=== PATIENT | female | born 1955 | race Caucasian/White ===

== ENCOUNTER 2016-11-03 20:16 | Emergency (ER) | payer BC ==
[2016-11-03 21:06] VITALS: BP 155/82
--- NOTE | 2016-11-03 21:28 | RAD ---
HISTORY: Head injury after fall COMPARISONS: April 06, 2003 TECHNIQUE: Multiple contiguous axial CT scans were obtained of the head without intravenous contrast. FINDINGS: HEMORRHAGE/INFARCT: There is no hemorrhage or acute infarct. MASSES/SHIFT: There is no mass or shift. EXTRA-AXIAL SPACES: There are no extra-axial fluid collections. SULCI AND VENTRICLES: The sulci and ventricles are normal in size and position for the patient's stated age. CEREBRUM: There are no focal parenchymal abnormalities. BRAINSTEM: There are no focal parenchymal abnormalities. CEREBELLUM: There are no focal parenchymal abnormalities. VESSELS: The vessels are grossly normal. PARANASAL SINUSES: The paranasal sinuses are clear. ORBITS: The orbits are unremarkable. BONES AND SOFT TISSUE: There is a frontal scalp hematoma. OTHER: None IMPRESSION: NO ACUTE INTRACRANIAL PATHOLOGY.
--- NOTE | 2016-11-03 21:30 | RAD ---
HISTORY: Neck pain after fall COMPARISONS: None TECHNIQUE: Multiple contiguous axial CT scans were obtained of the cervical spine without intravenous contrast, with coronal and sagittal multiplanar reformations. FINDINGS: BRAIN: The visualized brain is unremarkable CENTRAL CANAL: Evaluation of the central canal is limited on CT technique; however, there is no obvious canalicular mass or epidural hemorrhage. ALIGNMENT: The alignment is normal, without subluxation or dislocation. VERTEBRAL BODIES: There is multilevel anterolateral marginal osteophyte formation. There is no displaced fracture. JOINTS: There is osteoarthritis of the atlantoaxial articulation. MUSCULATURE: Unremarkable INTERVERTEBRAL DISCS: There is diffuse loss of intervertebral disc height. AXIAL IMAGES: C2-C3: There is no osseous neural foraminal narrowing or central canal stenosis. C3-C4: There is no osseous neural foraminal narrowing or central canal stenosis. C4-C5: There is no osseous neural foraminal narrowing or central canal stenosis. C5-C6: There is no osseous neural foraminal narrowing or central canal stenosis. C6-C7: There is no osseous neural foraminal narrowing or central canal stenosis. C7-T1: There is no osseous neural foraminal narrowing or central canal stenosis. SOFT TISSUES: The prevertebral fat stripe is preserved. The thyroid gland is heterogeneous with multiple nodules. There is carotid calcification OTHER: None. IMPRESSION: 1. DEGENERATIVE DISC DISEASE AND OSTEOARTHRITIS. 2. NO ACUTE OSSEOUS INJURY TO THE CERVICAL SPINE. 3. MULTINODULAR GOITER. RECOMMEND CORRELATION WITH DEDICATED IMAGING OF THE THYROID IN THE NONACUTE SETTING
--- NOTE | 2016-11-03 21:44 | UC ---
Head Injury HPI - HPI Summary HPI Summary: The patient comes in today for: 1. Fall with head injury and neck pain: Onset: 6 PM Palliative/provocative: Tipping the head back makes her head worse. Quality: Ache Region: Forehead and back of neck. Severity: 3/10 Time: Constant. Associated symptoms: Nausea: Present, but not just since the fall. Photophobia: None Phonophobia: NOne. Disorientation: None. Numbness/tingling: None. Weakness/heaviness: None. Tetanus: in the last year. * - History Of Current Complaint Stated Complaint: HEAD LACERATION Time Seen by Provider: 11/03/16 20:42 Hx Obtained From: Patient, Family/Professional Model - Allergies/Home Medications Allergies/Adverse Reactions: Allergies Allergy/AdvReac Type Severity Reaction Status Date / Time Amoxicillin [From Augmentin] Allergy Intermediate VOMITING, Verified 06/16/15 10 :40 DIARRHEA Clavulanic Acid Allergy Intermediate VOMITING, Verified 06/16/15 10:40 [From Augmentin] DIARRHEA Home Medications: Home Medications Carvedilol TAB* [Coreg TAB*] 1 tab PO BID 11/03/16 [History Confirmed 11/03/16] Lisinopril [Zestril 20 MG-] 1 tab PO DAILY 11/03/16 [History Confirmed 11/03/16] Spironolactone TAB* [Aldactone TAB 25 MG*] 1 tab PO DAILY 11/03/16 [History Confirmed 11/03/16] PMH/Surg Hx/FS Hx/Imm Hx Previously Healthy: Yes Endocrine History Of: Reports: Diabetes Denies: Thyroid Disease Cardiovascular History Of: Reports: Cardiac Disorders - pericardial effusion- pericardial window placed 2005, and LBBB, Hypertension Denies: Pacemaker/ICD, Myocardial Infarction, Congestive Heart Failure, Atrial Fibrillation, Deep Vein Thrombosis, Bleeding Disorders Respiratory History Of: Denies: COPD, Asthma, Bronchitis, Pneumonia, Pulmonary Embolism GI/ History Of: Denies: Gastroesophageal Reflux, Ulcer, Gastrointestinal Bleed, Gall Bladder Disease, Kidney Stones, Diverticulitis, Renal Disease, Urosepsis Neurological History Of: Denies: TIA, CVA, Dementia, Seizures, Migraine Psychological History Of: Denies: Anxiety, Depression, Bipolar Disorder, Schizophrenia, Post Traumatic Stress Disorder Cancer History Of: Denies: Lung Cancer, Colorectal Cancer, Breast Cancer, Prostate Cancer, Cervical Cancer Other History Of: Anticoagulant Therapy - Aspirin Negative For: HIV, Hepatitis B, Hepatitis C - Surgical History Surgical History: Yes Surgery Procedure, Year, and Place: PERICARDIAL WINDOW. TUBAL LIGATION. 2 C- SECTIONS, MAXILLARY SINUS - Family History Known Family History: Positive: Hypertension, Diabetes - Social History Alcohol Use: None Substance Use Type: None Smoking Status (MU): Former Smoker Amount Used/How Often: 1 ppd Length of Time of Smoking/Using Tobacco: 10 years Have You Smoked in the Last Year: No When Did the Patient Quit Smoking/Using Tobacco: 20 years - Immunization History Most Recent Influenza Vaccination: 2012 Review of Systems Constitutional: Negative Skin: Negative Eyes: Negative ENT: Negative Respiratory: Negative Cardiovascular: Negative Gastrointestinal: Negative Genitourinary: Negative All Other Systems Reviewed And Are Negative: Yes Physical Exam Triage Information Reviewed: Yes Appearance: Well-Appearing, No Pain Distress, Well-Nourished Vital Signs: Initial Vital Signs Pulse 81 11/03/16 20:59 Resp 18 11/03/16 20:59 BP 155/82 11/03/16 20:59 Pulse Ox 100 11/03/16 20:59 Vital Signs Reviewed: Yes Eyes: Positive: Conjunctiva Clear. Negative: Discharge ENT: Positive: Hearing grossly normal. Negative: Pharyngeal erythema, Nasal congestion, Nasal drainage, TM bulging, TM dull, TM red, Tonsillar swelling, Tonsillar exudate Dental: Negative: Gross Decay/Caries @, Dental Fracture @ Neck: Positive: Supple, No Lymphadenopathy. Negative: Nontender - She has tenderness of the paraspinous cervical musculature., Nuchal Rigidity Respiratory: Positive: Chest non-tender, Lungs clear, No respiratory distress, No accessory muscle use. Negative: Crackles, Wheezing Cardiovascular: Positive: RRR, No Murmur Abdomen Description: Positive: Nontender, No Organomegaly, Soft. Negative: Distended, Guarding Musculoskeletal: Positive: Strength Intact, ROM Intact, No Edema Neurological: Positive: Alert, Muscle Tone Normal Psychological: Positive: Normal Response To Family, Age Appropriate Behavior, Consolable Skin: Positive: Other - She has a laceration of the forehead. There is ecchymosis and bleeding from the laceration. The swelling of the forehead and around the left eye. Procedures - Laceration/Wound Repair 1 Location: head - Length: 4 cm Depth: 4 mm Width: 3 mm Description: Linear Anesthesia: 2.0%, Epi Betadine Prep?: Yes Laceration/Wound Explored: clean Closure: Single Layer Debridement: minimal Suture Type: Nylon - Ten 5-0 nylon Layer Closure?: No Diagnostics - Radiology No standard instances Xray Interpretation: No Acute Changes - No CT head or CT neck abnormality. Head Injury Course/Dx - Differential Dx/Diagnosis Provider Diagnoses: Head injury. Laceration of the forehead. Discharge - Discharge Plan Condition: Stable Disposition: HOME Patient Education Materials: Head Injury (ED), Laceration (ED), Care For Your Stitches (ED) Referrals: Mona Spicer MD [Primary Care Provider] - 1 Week (Please see your primary care provider or us in about 7 days to have the sutures removed. )
[2016-11-03] MEDS ORDERED: Lidocaine 2% PF * 5 ML VIAL INJ ONE (21:45)
[2016-11-03] MEDS ORDERED: Lidocaine 2% W/EPI 1:100,000* 20 ML MDV ONE (22:01)
[2016-11-03] MEDS ORDERED: Lidocaine 2% EPI 1:200000 MPF* 10 ML VIAL INJ ONE (22:02)
== END 2016-11-03 23:40 | disposition home or self-care (01) ==
LOC: UCEAST 20:16
DX: S01.81XA Laceration without foreign body of other part of head, initial encounter (principal); S09.90XA Unspecified injury of head, initial encounter; W19.XXXA Unspecified fall, initial encounter; Y93.9 Activity, unspecified; Y92.9 Unspecified place or not applicable; Z88.1 Allergy status to other antibiotic agents; E11.9 Type 2 diabetes mellitus without complications; I10 Essential (primary) hypertension; I44.7 Left bundle-branch block, unspecified; Z87.891 Personal history of nicotine dependence
CPT/HCPCS: 12013; 70450; 72125; 93005; 99211; G0463

== ENCOUNTER 2017-06-25 09:19 | Emergency (ER) | payer BC ==
[2017-06-25 09:35] VITALS: BP 125/50
--- NOTE | 2017-06-25 09:36 | UC ---
Cardiac HPI - HPI Summary HPI Summary: 61 yo female with the onset yesterday of generalized chest pressure feels dyspneic especially when supine no n/v no abd pain no diaphoresis hx HTN pace maker DM dyslipidemia pericardial effusion pericardial window cardiomyopathy - History of Current Complaint Stated Complaint: CHEST CONGESTION Time Seen by Provider: 06/25/17 09:22 Hx Obtained From: Patient Onset/Duration: Gradual Onset, Lasting Hours Timing: Constant Initial Severity: Moderate Current Severity: Moderate Chest Pain Location: Diffuse Character: Pressure/Squeezing Aggravating Factor(s): Position Alleviating Factor(s): Position Associated Signs & Symptoms: Positive: Chest Pain, SOB - Allergy/Home Medications Allergies/Adverse Reactions: Allergies Allergy/AdvReac Type Severity Reaction Status Date / Time Amoxicillin [From Augmentin] Allergy Intermediate VOMITING, Verified 06/25/17 09 :35 DIARRHEA Clavulanic Acid Allergy Intermediate VOMITING, Verified 06/25/17 09:35 [From Augmentin] DIARRHEA Lisinopril Allergy Diarrhea Verified 06/25/17 09:35 Pregabalin [From Lyrica] Allergy Swelling Verified 06/25/17 09:35 Home Medications: Home Medications Lactobacillus [Probiotic] 1 cap PO DAILY 06/25/17 [History Confirmed 06/25/17] PMH/Surg Hx/FS Hx/Imm Hx Endocrine History: Diabetes, Dyslipidemia Cardiovascular History: Hypertension, Pacemaker/ICD, Other Other Cardiovascular History: pericarial effusion/cardiomyopathy Respiratory History: Pneumonia Other History Of: Anticoagulant Therapy - Aspirin Negative For: HIV, Hepatitis B, Hepatitis C - Surgical History Surgical History: Yes Surgery Procedure, Year, and Place: PERICARDIAL WINDOW. TUBAL LIGATION. 2 C- SECTIONS, MAXILLARY SINUS - Family History Known Family History: Positive: Cardiac Disease, Hypertension, Diabetes - Social History Alcohol Use: None Substance Use Type: None Smoking Status (MU): Former Smoker Amount Used/How Often: 1 ppd Length of Time of Smoking/Using Tobacco: 10 years Have You Smoked in the Last Year: No When Did the Patient Quit Smoking/Using Tobacco: 20 years - Immunization History Most Recent Influenza Vaccination: 2012 Review of Systems Constitutional: Fatigue Skin: Negative Eyes: Negative ENT: Negative Respiratory: Shortness Of Breath, Cough Cardiovascular: Chest Pain Gastrointestinal: Negative Genitourinary: Negative Motor: Negative Neurovascular: Negative Musculoskeletal: Negative Neurological: Negative Psychological: Negative Is Patient Immunocompromised?: No All Other Systems Reviewed And Are Negative: Yes Physical Exam Triage Information Reviewed: Yes Appearance: Well-Appearing, No Pain Distress, Well-Nourished, Other: - BMI 39 Vital Signs Reviewed: Yes Eyes: Positive: Conjunctiva Clear ENT: Positive: Hearing grossly normal. Negative: Nasal congestion, Nasal drainage, Trismus, Muffled voice, Hoarse voice Neck: Positive: Supple, Nontender Respiratory: Positive: No respiratory distress, No accessory muscle use, Crackles - right base Cardiovascular: Positive: RRR, No Murmur Abdomen Description: Positive: Nontender, No Organomegaly Musculoskeletal: Positive: ROM Intact, No Edema Neurological: Positive: Alert Psychological Exam: Normal Skin Exam: Normal - Assessment/Plan Course Of Treatment: EKG- paced rhythm with PVC. d/w Dr. Peña. to [facility] via EMS. currently no chest pressure seated - Clinical Impression Provider Diagnoses: Chest pressure. dyspnea Discharge - Discharge Plan Condition: Stable Disposition: [facility] Referrals: Mona Spicer MD [Primary Care Provider] -
[2017-06-25] MEDS ORDERED: Aspirin Low Dose CHEW TAB* 81 MG PO ONE (09:51)
== END 2017-06-25 10:06 | disposition short-term general hospital (02) ==
LOC: UCEAST 09:19
DX: R07.89 Other chest pain (principal); R06.00 Dyspnea, unspecified; I10 Essential (primary) hypertension; E11.9 Type 2 diabetes mellitus without complications; R06.02 Shortness of breath; Z95.0 Presence of cardiac pacemaker; Z88.0 Allergy status to penicillin; Z88.1 Allergy status to other antibiotic agents; Z88.8 Allergy status to other drugs, medicaments and biological substances; Z87.891 Personal history of nicotine dependence
CPT/HCPCS: 93005; 99213; A9270-GY; G0463

== ENCOUNTER 2017-06-25 10:28 | Emergency (ER) | payer BC ==
[2017-06-25] MEDS ORDERED: NS 0.9% 1000 ML* 1,000 ML IV ONE ×2 (11:16→12:20)
[2017-06-25] MEDS ORDERED: Nitroglycerin TAB 0.4 MG* 0.4 MG TAB SL ONE (11:16)
[2017-06-25 12:01] LABS: Comments Flag Yes; Hematocrit 32 % (35-47); Hemoglobin 10.9 g/dl (12.0-16.0); Mean Corpuscular HGB Conc 34 g/dl (31-36); Mean Corpuscular Hemoglobin 28 pg (27-31); Mean Corpuscular Volume 82 fL (80-97); Mean Platelet Volume 11 um3 (7.4-10.4); Red Cell Distribution Width 14 % (10.5-15); White Blood Count 4.7 10^3/ul (3.5-10.8)
[2017-06-25 12:02] LABS: Add Diff/Slide Review? Slide Review Added
[2017-06-25 12:16] LABS: Albumin 3.6 g/dL (3.2-5.2); Calcium 8.9 mg/dL (8.6-10.3); EGFR African American 39.3 (>60); EGFR Non-African American 30.6 (>60); Globulin 2.6 g/dL (2-4); Potassium 4.2 mmol/L (3.5-5.0); Total Bilirubin 0.8 mg/dL (0.2-1.0); Total Protein 6.2 g/dL (6.4-8.9)
--- NOTE | 2017-06-25 12:23 | RAD ---
Indication: Chest pain. Single frontal view of the chest performed at 1135 hours was reviewed. Comparison is made with previous exam dated August 12, 2007. No mediastinal shift is noted. Heart is of normal size and configuration. Lung zhang appear clear. IMPRESSION: NO ACTIVE CARDIOPULMONARY DISEASE IS NOTED.
[2017-06-25 12:29] LABS: Troponin I 0.04 ng/mL (<0.04)
[2017-06-25 12:51] LABS: TSH (Thyroid Stimulating Horm) 1.22 mcIU/mL (0.34-5.60)
[2017-06-25 13:20] VITALS: BP 142/66
--- NOTE | 2017-06-25 13:37 | ED ---
Jermaine Bales Stephanie, scribed for Ottoniel Felder MD on 06/25/17 at 1130 . 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 The patient describes the pain as a chest pressure/ tightness that started gradually and has been constant since. Symptoms include SOB, coughing with thick yellow mucus, and itchy eyes. Pt denies abd pain and palpitations. Aggravating factors include resting in a supine position. Alleviating factors include sitting up. She has a cardiac history of viral associated pericardial effusion resulting pericardial window and has a pacemaker within the left part of the chest. Pt was given aspirin at . - History of Current Complaint Chief Complaint: EDChestWallPain Time Seen by Provider: 06/25/17 11:05 Hx Obtained From: Patient Onset/Duration: Started Days Ago - 1, Still Present Timing: Constant Pain Intensity: 5 Pain Scale Used: 0-10 Numeric Character: Cough, Productive, Pressure/Squeezing, Tightness Aggravating Factor(s): Position - supine position Alleviating Factor(s): Upright Position Associated Signs and Symptoms: Positive: Chest Pain, Shortness of Breath, Productive Cough - thick yellow sputum, Other: - itchy eyes. Negative: Swelling - Negative calf edema, Abdominal Pain, Calf Pain/Swelling - Allergy/Home Medications Allergies/Adverse Reactions: Allergies Allergy/AdvReac Type Severity Reaction Status Date / Time Amoxicillin [From Augmentin] Allergy Intermediate VOMITING, Verified 06/25/17 09 :35 DIARRHEA Clavulanic Acid Allergy Intermediate VOMITING, Verified 06/25/17 09:35 [From Augmentin] DIARRHEA Lisinopril Allergy Diarrhea Verified 06/25/17 09:35 Pregabalin [From Lyrica] Allergy Swelling Verified 06/25/17 09:35 Home Medications: Home Medications Glimepiride (NF) 4 mg PO BID 06/25/17 [History Confirmed 06/25/17] PMH/Surg Hx/FS Hx/Imm Hx Previously Healthy: No Endocrine/Hematology History: Reports: Hx Anticoagulant Therapy - Aspirin, Hx Diabetes Denies: Hx Thyroid Disease Cardiovascular History: Reports: Hx Hypertension Denies: Hx Congestive Heart Failure, Hx Deep Vein Thrombosis, Hx Myocardial Infarction, Hx Pacemaker/ICD Respiratory History: Denies: Hx Asthma, Hx Chronic Obstructive Pulmonary Disease (COPD), Hx Lung Cancer, Hx Pneumonia, Hx Pulmonary Embolism GI History: Denies: Hx Gall Bladder Disease, Hx Gastrointestinal Bleed, Hx Ulcer, Hx Urosepsis History: Denies: Hx Kidney Stones, Hx Renal Disease EENT History: Denies: Hx Deafness Neurological History: Reports: Other Neuro Impairments/Disorders - HX OF BACK PROBLEMS FOR YEARS Denies: Hx Dementia, Hx Migraine, Hx Seizures, Hx Transient Ischemic Attacks (TIA) Psychiatric History: Denies: Hx Anxiety, Hx Depression, Hx Schizophrenia, Hx Bipolar Disorder - Surgical History Surgery Procedure, Year, and Place: PERICARDIAL WINDOW. TUBAL LIGATION. 2 C- SECTIONS, MAXILLARY SINUS Infectious Disease History: No Infectious Disease History: Denies: Hx Clostridium Difficile, Hx Hepatitis, Hx Human Immunodeficiency Virus (HIV), Hx of Known/Suspected MRSA, Hx Shingles, Hx Tuberculosis, Hx Known/ Suspected VRE, Hx Known/Suspected VRSA, History Other Infectious Disease, Traveled Outside the [place] in Last 30 Days - Family History Known Family History: Positive: Cardiac Disease, Hypertension, Diabetes - Social History Alcohol Use: None Substance Use Type: Reports: None Hx Tobacco Use: Yes Smoking Status (MU): Former Smoker Amount Used/How Often: 1 ppd Length of Time of Smoking/Using Tobacco: 10 years Have You Smoked in the Last Year: No Review of Systems Negative: Fever Positive: Other - itchyness Positive: Chest Pain. Negative: Palpitations Positive: Shortness Of Breath, Cough - prodictive, with thick yellow mucus Negative: Abdominal Pain Negative: Edema All Other Systems Reviewed And Are Negative: Yes Physical Exam - Summary Physical Exam Summary: Appearance: Mild distress, dyspneic appearance Skin: warm, dry, reflects adequate perfusion Head/face: normal Eyes: EOMI, GT ENT: normal Neck: supple, non-tender Respiratory: CTA, breath sounds present Cardiovascular: Occasional irregularity to the heart without murmur, pulses symmetrical Abdomen: non-tender, soft Bowel: present Musculoskeletal: normal, strength/ROM intact Neuro: normal, sensory motor intact, A&Ox3 Triage Information Reviewed: Yes Vital Signs On Initial Exam: Initial Vitals Temp Pulse Resp BP Pulse Ox 97.8 F 80 16 151/60 97 06/25/17 10:29 06/25/17 10:29 06/25/17 10:29 06/25/17 10:29 06/25/17 10:29 Vital Signs Reviewed: Yes - [place] Coma Scale Coma Scale Total: 15 Diagnostics - Vital Signs Vital Signs Temp Pulse Resp BP Pulse Ox 06/25/17 10:38 68 16 139/59 98 06/25/17 10:36 68 19 99 06/25/17 10:29 97.8 F 80 16 151/60 97 - Laboratory Lab Results: Lab Results 06/25/17 06/25/17 06/25/17 Range/Units 11:45 11:45 11:45 WBC 4.7 (3.5-10.8) 10^3/ul RBC 3.90 L (4.0-5.4) 10^6/ul Hgb 10.9 L (12.0-16.0) g/dl Hct 32 L (35-47) % MCV 82 (80-97) fL MCH 28 (27-31) pg MCHC 34 (31-36) g/dl RDW 14 (10.5-15) % Plt Count 90 L (150-450) 10^3/ul MPV 11 H (7.4-10.4) um3 Neut % (Auto) 77.5 (38-83) % Lymph % (Auto) 8.7 L (25-47) % [place] % (Auto) 11.9 H (1-9) % Eos % (Auto) 1.1 (0-6) % Baso % (Auto) 0.8 (0-2) % Absolute Neuts (auto) 3.7 (1.5-7.7) 10^3/ul Absolute Lymphs (auto) 0.4 L (1.0-4.8) 10^3/ul Absolute Monos (auto) 0.6 (0-0.8) 10^3/ul Absolute Eos (auto) 0.1 (0-0.6) 10^3/ul Absolute Basos (auto) 0 (0-0.2) 10^3/ul Absolute Nucleated RBC 0 10^3/ul Nucleated RBC % 0 INR (Anticoag Therapy) (0.77-1.02) APTT (26.0-36.3) seconds D-Dimer, Quantitative (Less Than 230) ng/mL Sodium 137 (133-145) mmol/L Potassium 4.2 (3.5-5.0) mmol/L Chloride 106 (101-111) mmol/L Carbon Dioxide 24 (22-32) mmol/L Anion Gap 7 (2-11) mmol/L BUN 34 H (6-24) mg/dL Creatinine 1.70 H (0.51-0.95) mg/dL Est GFR ( Amer) 39.3 (>60) Est GFR (Non-Af Amer) 30.6 (>60) BUN/Creatinine Ratio 20.0 (8-20) Glucose 182 H (70-100) mg/dL Lactic Acid (0.5-2.0) mmol/L Calcium 8.9 (8.6-10.3) mg/dL Total Bilirubin 0.80 (0.2-1.0) mg/dL AST 23 (13-39) U/L ALT 18 (7-52) U/L Alkaline Phosphatase 93 (34-104) U/L CK-MB (CK-2) 1.6 (0.6-6.3) ng/mL Troponin I 0.04 H* (<0.04) ng/mL B-Natriuretic Peptide 196 H ( - 100) pg/mL Total Protein 6.2 L (6.4-8.9) g/dL Albumin 3.6 (3.2-5.2) g/dL Globulin 2.6 (2-4) g/dL Albumin/Globulin Ratio 1.4 (1-3) TSH 1.22 (0.34-5.60) mcIU/mL Influenza A (Rapid) (Negative) Influenza B (Rapid) (Negative) 06/25/17 06/25/17 06/25/17 Range/Units 11:45 11:45 12:13 WBC (3.5-10.8) 10^3/ul RBC (4.0-5.4) 10^6/ul Hgb (12.0-16.0) g/dl Hct (35-47) % MCV (80-97) fL MCH (27-31) pg MCHC (31-36) g/dl RDW (10.5-15) % Plt Count (150-450) 10^3/ul MPV (7.4-10.4) um3 Neut % (Auto) (38-83) % Lymph % (Auto) (25-47) % [place] % (Auto) (1-9) % Eos % (Auto) (0-6) % Baso % (Auto) (0-2) % Absolute Neuts (auto) (1.5-7.7) 10^3/ul Absolute Lymphs (auto) (1.0-4.8) 10^3/ul Absolute Monos (auto) (0-0.8) 10^3/ul Absolute Eos (auto) (0-0.6) 10^3/ul Absolute Basos (auto) (0-0.2) 10^3/ul Absolute Nucleated RBC 10^3/ul Nucleated RBC % INR (Anticoag Therapy) 1.00 (0.77-1.02) APTT 29.9 (26.0-36.3) seconds D-Dimer, Quantitative 362 H (Less Than 230) ng/mL Sodium (133-145) mmol/L Potassium (3.5-5.0) mmol/L Chloride (101-111) mmol/L Carbon Dioxide (22-32) mmol/L Anion Gap (2-11) mmol/L BUN (6-24) mg/dL Creatinine (0.51-0.95) mg/dL Est GFR ( Amer) (>60) Est GFR (Non-Af Amer) (>60) BUN/Creatinine Ratio (8-20) Glucose (70-100) mg/dL Lactic Acid 1.5 (0.5-2.0) mmol/L Calcium (8.6-10.3) mg/dL Total Bilirubin (0.2-1.0) mg/dL AST (13-39) U/L ALT (7-52) U/L Alkaline Phosphatase (34-104) U/L CK-MB (CK-2) (0.6-6.3) ng/mL Troponin I (<0.04) ng/mL B-Natriuretic Peptide ( - 100) pg/mL Total Protein (6.4-8.9) g/dL Albumin (3.2-5.2) g/dL Globulin (2-4) g/dL Albumin/Globulin Ratio (1-3) TSH (0.34-5.60) mcIU/mL Influenza A (Rapid) Positive H (Negative) Influenza B (Rapid) Negative (Negative) Result Diagrams: 06/25/17 11:45 06/25/17 11:45 Lab Statement: Any lab studies that have been ordered have been reviewed, and results considered in the medical decision making process. - EKG 11:04 ST Segment: Non-Specific EKG Interpretation: left axis deviation, atrial paste, narrow complex. occasional PBC. Re-Evaluation - Re-Evaluation First Eval Change: Improved - with IV fluids Chest Pain Course/Dx - Course Course Of Treatment: pt with cold sx and now with chest tightness that is constant. +Flu A. No infiltrate on xray. Known CRF, today's Cr is about average. Improved with fluids. Trop detected, Ddimer min elevation due to CRF, etc. Bedside echo performed by me shows no pericardial effusion. Heart nl size on xray. D/C on symptom control and Tamiflu. - Diagnoses Provider Diagnoses: Influenza A, Atypical chest pain, Chronic renal failure Discharge - Discharge Plan Condition: Fair Disposition: HOME Prescriptions: Albuterol HFA INHALER* [Ventolin HFA Inhaler*] 2 puff INH Q4H PRN #1 mdi PRN Reason: Shortness Of Breath Guaifenesin [Guaifenesin ER] 600 mg PO BID #20 tab Oseltamivir CAP* [Tamiflu CAP*] 75 mg PO BID #10 cap Patient Education Materials: Chest Pain (ED), Chronic Kidney Disease (ED), Influenza (ED) Forms: *Work Release Referrals: Mona Spicer MD [Primary Care Provider] - Additional Instructions: Stay well hydrated. Electrolyte containing water or Gatorade G2 may help. Watch things with high sugar. Return with difficulty breathing, worse or other concerns as discussed. The documentation as recorded by the Jermaine watkins Stephanie accurately reflects the service I personally performed and the decisions made by me, Ottoniel Felder MD.
--- NOTE | 2017-06-25 14:13 | ED ---
I, Beryl Dean, scribed for Ottoniel Felder MD on 06/25/17 at 1411 . Progress - EKG/XRAY/CT Xray Comments: No active cardiopulmonary disease noted. Re-Evaluation - Re-Evaluation First Eval Change: Improved - with IV fluids Course/Dx - Course Course Of Treatment: pt with cold sx and now with chest tightness that is constant. +Flu A. No infiltrate on xray. Known CRF, today's Cr is about average. Improved with fluids. Trop detected, Ddimer min elevation due to CRF, etc. Bedside echo performed by me shows no pericardial effusion. Heart nl size on xray. D/C on symptom control and Tamiflu. - Diagnoses Provider Diagnoses: Influenza A, Atypical chest pain, Chronic renal failure The documentation as recorded by the Jermaine watkins Stephanie accurately reflects the service I personally performed and the decisions made by me, Ottoniel Felder MD.
== END 2017-06-25 13:15 | disposition home or self-care (01) ==
LOC: ED 10:28
DX: J09.X2 Influenza due to identified novel influenza A virus with other respiratory manifestations (principal); R07.89 Other chest pain; Z79.82 Long term (current) use of aspirin; I12.9 Hypertensive chronic kidney disease with stage 1 through stage 4 chronic kidney disease, or unspecified chronic kidney disease; E11.22 Type 2 diabetes mellitus with diabetic chronic kidney disease; N18.9 Chronic kidney disease, unspecified; Z87.891 Personal history of nicotine dependence
CPT/HCPCS: 36415; 71010; 80053; 82553; 83605; 83880; 84443; 84484; 85025; 85379; 85610; 85730; 87502; 93005; 99283; A9270-GY

== ENCOUNTER 2017-07-14 08:02 | Emergency (ER) | payer SELFPAY ==
[2017-07-14 08:16] VITALS: BP 146/55
--- NOTE | 2017-07-14 08:47 | UC ---
[place] Abhishek, scribed for Sylwia Sanders MD on 07/14/17 at 0831 . Upper Extremity HPI - HPI Summary HPI Summary: This patient is a 61 year old F presenting to [facility] with a chief complaint of a right wrist injury since two days. During the onset of the injury, the pt was working at a [employer] and she was lifting/ moving a cookie cutter tray when she heard a pop. Upon hearing the pop, the pain began in her right wrist and she noted edema. Pt recalls visiting her [place] vascular surgeon yesterday for follow-up of a different condition and he recommended further evaluation of the right wrist by another physician. The patient rates the pain 5 /10 in severity. Symptoms aggravated by movement. Symptoms alleviated by rest. No analgesia taken. no ice applied. Edema decreased, Patient denies elbow pain. Pertinent PMHx includes neuropathy related to diabetes. Pt's medications reviewed during this visit. - History of Current Complaint Stated Complaint: WRIST INJURY Time Seen by Provider: 07/14/17 08:05 Hx Obtained From: Patient Onset/Duration: Sudden Onset, Lasting Days - two days Severity Initially: Moderate Severity Currently: Moderate Pain Intensity: 5 Pain Scale Used: 0-10 Numeric Location Of Pain: Is Discrete @ - right wrist Aggravating Factor(s): Movement Alleviating Factor(s): Nothing Associated Signs And Symptoms: Positive: Swelling - right wrist - Allergies/Home Medications Allergies/Adverse Reactions: Allergies Allergy/AdvReac Type Severity Reaction Status Date / Time Amoxicillin [From Augmentin] Allergy Intermediate VOMITING, Verified 06/25/17 09 :35 DIARRHEA Clavulanic Acid Allergy Intermediate VOMITING, Verified 06/25/17 09:35 [From Augmentin] DIARRHEA CI Pigment Blue 63 Allergy GI Upset Verified 07/14/17 08:11 [From Tamiflu] Lisinopril Allergy Diarrhea Verified 06/25/17 09:35 Pregabalin [From Lyrica] Allergy Swelling Verified 06/25/17 09:35 Oseltamivir [From Tamiflu] AdvReac GI Upset Verified 07/14/17 08:12 PMH/Surg Hx/FS Hx/Imm Hx Previously Healthy: Yes Cardiovascular History: Cardiac Disease, Pacemaker/ICD, Other - LUE dvt s/p defib placement Other Cardiovascular History: LUE dvt s/p defib placement Neurological History: Other Other Neurological History: Neuropathy Other History Of: Anticoagulant Therapy - Aspirin Negative For: HIV, Hepatitis B, Hepatitis C - Surgical History Surgical History: Yes Surgery Procedure, Year, and Place: PERICARDIAL WINDOW. TUBAL LIGATION. 2 C- SECTIONS, MAXILLARY SINUS - Family History Known Family History: Positive: Cardiac Disease, Hypertension, Diabetes - Social History Occupation: Employed Full-time Alcohol Use: None Substance Use Type: None Smoking Status (MU): Former Smoker Amount Used/How Often: 1 ppd Length of Time of Smoking/Using Tobacco: 10 years Have You Smoked in the Last Year: No When Did the Patient Quit Smoking/Using Tobacco: 20 years - Immunization History Most Recent Influenza Vaccination: 2012 Review of Systems Constitutional: Negative Skin: Negative Eyes: Negative ENT: Negative Cardiovascular: Negative Gastrointestinal: Negative Genitourinary: Negative Motor: Other - right wrist pain. Negative Elbow pain. Musculoskeletal: Edema - Edema at the right wrist Neurological: Other - Numbness and Tingling due to Neuropathy Psychological: Negative All Other Systems Reviewed And Are Negative: Yes Physical Exam Triage Information Reviewed: Yes Appearance: Well-Appearing, No Pain Distress, Well-Nourished Vital Signs: Initial Vital Signs Temp 97.5 F 07/14/17 08:13 Pulse 70 07/14/17 08:13 Resp 16 07/14/17 08:13 BP 146/55 07/14/17 08:13 Pulse Ox 99 07/14/17 08:13 Vital Signs Reviewed: Yes Eye Exam: Normal ENT: Positive: Hearing grossly normal Neck: Positive: Supple Respiratory: Positive: No respiratory distress, No accessory muscle use Cardiovascular Exam: Normal Cardiovascular: Positive: RRR, No Murmur, Other: - 2+ radial, 2+ ulnar Musculoskeletal: Positive: Other: - + TTP base thumb in thenar eminence Pain extends prox to wrist Pain increased with movement, direct palp and movement. Pain increases with adduction, extension against resistance and opponens against resistance mild edema lateral wrist No weaknes + flex/ext IP joint Neurological Exam: Normal Neurological: Positive: Alert, Muscle Tone Normal, Other: - + gross sensation throughout finger Psychological Exam: Normal Skin Exam: Normal Diagnostics - Radiology Wrist X-ray Xray Interpretation: Positive (See Comments) Radiology Interpretation Completed By: Radiologist - Wrist X-ray reveals Degenerative changes at the right thumb metacarpal trapezium joint as described above. Urgent physician has reviewed this report and agrees. Upper Extremity Course/Dx - Course Course Of Treatment: pt presents with discomfort base of right thumb- dominant hand. pt states had poping sensation and has discomfort with movement since. improves at rest. no direct trauma. No analgesia. No ice. PT states vascular surgeon that she say yesterday for unrelated condition recommended she be evaluated for possible fracture - Differential Dx/Diagnosis Provider Diagnoses: thumb sprain. arthritis Discharge - Discharge Plan Condition: Stable Disposition: HOME Patient Education Materials: Wrist Sprain (ED) Forms: *Work Release Referrals: Mona Spicer MD [Medical Doctor] - Aggie Marsh MD [Medical Doctor] - Additional Instructions: -wear splint for comfort and support -elevate you arm to help with swelling and pain - apply ice (Wrapped in a towel) 20 minutes at a time, 2-3 times a day -Okay to alternate ibuprofen (Advil, Motrin) and Tylenol every 3 hours for pain. Take with food. Do NOT take for more than 4-5 days -Contact the orthopedic provider group provided to schedule a follow-up appointment. Contact the orthopedic provider or return with question or concerns The documentation as recorded by the [place] Abhishek accurately reflects the service I personally performed and the decisions made by me, Sylwia Sanders MD.
--- NOTE | 2017-07-14 09:07 | RAD ---
INDICATION: Pain at the base of the right thumb with a "popping" sensation COMPARISON: None. TECHNIQUE: 3 views right wrist. REPORT: The visualized bones are properly aligned and well corticated. Degenerative changes at the right thumb metacarpal trapezium joint include mild sclerotic change as well as a mild degree of radial subluxation of the metacarpal.There is no fracture, dislocation or other focal osseous abnormality. IMPRESSION: Degenerative changes at the right thumb metacarpal trapezium joint as described above.
== END 2017-07-14 09:29 | disposition home or self-care (01) ==
LOC: UCEAST 08:02
DX: S63.501A Unspecified sprain of right wrist, initial encounter (principal); X50.9XXA Other and unspecified overexertion or strenuous movements or postures, initial encounter; Y93.G9 Activity, other involving cooking and grilling; Y92.89 Other specified places as the place of occurrence of the external cause; M18.9 Osteoarthritis of first carpometacarpal joint, unspecified; Z87.891 Personal history of nicotine dependence; Z88.3 Allergy status to other anti-infective agents; Z88.8 Allergy status to other drugs, medicaments and biological substances
CPT/HCPCS: 99211; G0463

== ENCOUNTER 2018-06-24 21:39 | Emergency (ER) | payer OTHER ==
[2018-06-24 21:52] VITALS: BP 154/76
--- NOTE | 2018-06-24 22:01 | UC ---
Palpitation/Dysrhythmia HP - HPI Summary HPI Summary: ONSET OF PALPITATIONS, SHORTNESS OF BREATH AND FATIGUE/OVERALL MALAISE AROUND 5 PM THIS EVENING WHILE SHE WAS IN THE SHOWER. NO UNUSUAL PHYSICAL ACTIVITY TODAY ALTHOUGH SHE DOES WORK IN THE [employer] DEPARTMENT AT [employer] SO IS ON HER FEET ALL DAY. HAS HISTORY OF CARDIOMYOPATHY WHICH SHE STATES WAS VIRALLY INDUCED FOR WHICH SHE HAS A DEFIBRILLATOR. ALSO HAS A H/O UNCONTROLLED DIABETES, HYPERTENSION AND STAGE IV KIDNEY DISEASE. DENIES CHEST PAIN, NAUSEA. - History of Current Complaint Chief Complaint: UCRespiratory Stated Complaint: CHEST PAIN Time Seen by Provider: 06/24/18 21:48 Hx Obtained From: Patient Onset/Duration: Sudden Onset, Lasting Hours, Still Present Timing: Constant Severity Initially: Moderate Severity Currently: Moderate Pain Intensity: 0 Pain Scale Used: 0-10 Numeric Character: Fast Aggravating Factor(s): Exertion Alleviating Factor(s): Nothing Associated Signs & Symptoms: Positive: Shortness of Breath. Negative: Chest Pain, Nausea - Allergy/Home Medications Allergies/Adverse Reactions: Allergies Allergy/AdvReac Type Severity Reaction Status Date / Time amoxicillin [From Augmentin] Allergy DIARRHEA, Verified 06/24/18 21:55 VOMITING clavulanic acid Allergy DIARRHEA, Verified 06/24/18 21:55 [From Augmentin] VOMITING iohexol [From Omnipaque] Allergy See Comment Verified 06/24/18 21:55 lisinopril Allergy Diarrhea Verified 06/24/18 21:55 oseltamivir [From Tamiflu] Allergy GI Upset Verified 06/24/18 21:55 pregabalin [From Lyrica] Allergy Swelling Verified 06/24/18 21:55 Home Medications: Home Medications Sitagliptin Phosphate [Januvia] 100 mg PO DAILY 06/24/18 [History Confirmed ] PMH/Surg Hx/FS Hx/Imm Hx Endocrine History: Diabetes - UNCONTROLLED Cardiovascular History: Cardiac Disease - CARDIOMYOPATHY - VIRALLY INDUCED?, Hypertension, Pacemaker/ICD GI/ History: Renal Disease - STAGE 4 Other History Of: Anticoagulant Therapy - Aspirin Negative For: HIV, Hepatitis B, Hepatitis C - Surgical History Surgical History: Yes Surgery Procedure, Year, and Place: PERICARDIAL WINDOW. TUBAL LIGATION. 2 C- SECTIONS, MAXILLARY SINUS, AICD - Family History Known Family History: Positive: Cardiac Disease, Hypertension, Diabetes - Social History Alcohol Use: None Substance Use Type: None Smoking Status (MU): Former Smoker Amount Used/How Often: 1 ppd Length of Time of Smoking/Using Tobacco: 10 years Have You Smoked in the Last Year: No When Did the Patient Quit Smoking/Using Tobacco: 20 years - Immunization History Most Recent Influenza Vaccination: 2012 Review of Systems All Other Systems Reviewed And Are Negative: Yes Constitutional: Positive: Fatigue Respiratory: Positive: Shortness Of Breath Cardiovascular: Positive: Palpitations Gastrointestinal: Positive: Negative Neurological: Negative: Headache Physical Exam Triage Information Reviewed: Yes Appearance: No Pain Distress, Well-Nourished, Ill-Appearing - APPEARS FATIGUED. LISTLESS, Obese Vital Signs: Initial Vital Signs Temp 96.9 F 06/24/18 21:45 Pulse 84 06/24/18 21:45 Resp 20 06/24/18 21:45 BP 154/76 06/24/18 21:45 Pulse Ox 99 06/24/18 21:45 Vital Signs Reviewed: Yes Eyes: Positive: Conjunctiva Clear ENT: Positive: Hearing grossly normal Neck: Positive: Supple Respiratory Exam: Normal Cardiovascular Exam: Normal Abdomen Description: Positive: Soft Musculoskeletal: Positive: No Edema Neurological: Positive: Alert Psychological: Positive: Age Appropriate Behavior Skin: Negative: Rashes Diagnostics - EKG Cardiac Rate: NL - 79BPM ATRIAL PACED Ectopy: None Palpitations Course/Dx - Course Course Of Treatment: TO [facility] BY AMBULANCE. - Differential Dx/Diagnosis Provider Diagnosis: Heart palpitations, Fatigue - Physician Notifications Discussed Patient Care With: Praful Shelton - TO [facility] BY AMBULANCE Time Discussed With Above Provider: 21:59 Instructed by Provider To: MD Will See In ED Discharge - Sign-Out/Discharge Documenting (check all that apply): Patient Departure All imaging exams completed and their final reports reviewed: No Studies - Discharge Plan Condition: Stable Disposition: TRANS HIGHER LVL OF CARE FAC Referrals: Shruti Sutherland MD [Primary Care Provider] - - Billing Disposition and Condition Condition: STABLE Disposition: Trans Higher Lvl of Care Fac
== END 2018-06-24 22:11 | disposition short-term general hospital (02) ==
LOC: UCEAST 21:39
DX: R00.2 Palpitations (principal); R53.83 Other fatigue; Z88.0 Allergy status to penicillin; Z88.8 Allergy status to other drugs, medicaments and biological substances; Z91.041 Radiographic dye allergy status; E11.65 Type 2 diabetes mellitus with hyperglycemia; Z79.84 Long term (current) use of oral hypoglycemic drugs; Z95.811 Presence of heart assist device; I42.9 Cardiomyopathy, unspecified; Z87.891 Personal history of nicotine dependence
CPT/HCPCS: 93005; 99213; G0463

== ENCOUNTER 2018-06-24 22:36 | Observation (INO) | payer OTHER ==
[2018-06-24 23:19] LABS: Urine Appearance Clear; Urine Bacteria Absent (Absent); Urine Bilirubin Negative (Negative); Urine Blood 2+ (Negative); Urine Color Straw; Urine Glucose 2+(150 mg/dL) (Negative); Urine Ketones Negative (Negative); Urine Nitrite Negative (Negative); Urine Protein Negative (Negative); Urine Red Blood Cell 2+(6-10/hpf) (Absent); Urine Specific Gravity 1.005 (1.010-1.030); Urine Urobilinogen Negative (Negative); Urine White Blood Cell 3+(>20/hpf) (Absent)
[2018-06-24 23:35] LABS: ABS Basophils 0 10^3/ul (0-0.2); ABS Eosinophils 0.1 10^3/ul (0-0.6); ABS Lymphocytes 0.9 10^3/ul (1.0-4.8); ABS Monocytes 0.5 10^3/ul (0-0.8); ABS Nucleated RBC 0 10^3/ul; Eosinophil % 1.7 %; Hematocrit 37 % (35-47); Hemoglobin 12.8 g/dl (12.0-16.0); Lymphocyte % 16.5 %; Mean Corpuscular HGB Conc 34 g/dl (31-36); Mean Corpuscular Hemoglobin 29 pg (27-31); Mean Corpuscular Volume 85 fL (80-97); Mean Platelet Volume 11.4 fL (7.4-10.4); Nucleated Red Blood Cells % 0; Platelet Count 101 10^3/ul (150-450); Red Blood Count 4.36 10^6/ul (4.00-5.40); Red Cell Distribution Width 13 % (10.5-15); White Blood Count 5.5 10^3/ul (3.5-10.8)
[2018-06-24 23:41] LABS: Activated Partial Thrombo Time 31.9 seconds (26.0-36.3); INR 0.94 (0.77-1.02)
--- NOTE | 2018-06-24 23:42 | ED ---
Palpitations / Dysrhythmia - HPI Summary HPI Summary: A 62 y/o female brought in by [email or web address] ambulance presents to [facility] with a chief complaint of palpitations since the night of 06/24/18. She rates her pain as 0/ 10. She denies CP, fever, cough, SOB or abd pain. She denies a Hx of emphysema or asthma. She has had a pacemaker since 2017. - History of Current Complaint Chief Complaint: EDDysrhythmPalp Time Seen by Provider: 06/24/18 22:41 Hx Obtained From: Patient Onset/Duration: Sudden Onset, Lasting Hours Severity Initially: Mild Severity Currently: Mild Character: Pounding Aggravating: Nothing Alleviating: Nothing Associated Signs & Symptoms: Negative - SOB, cough, CP, abd pain - Allergy/Home Medications Allergies/Adverse Reactions: Allergies Allergy/AdvReac Type Severity Reaction Status Date / Time amoxicillin [From Augmentin] Allergy DIARRHEA, Verified 06/24/18 22:52 VOMITING clavulanic acid Allergy DIARRHEA, Verified 06/24/18 22:52 [From Augmentin] VOMITING iohexol [From Omnipaque] Allergy See Comment Verified 06/24/18 22:52 lisinopril Allergy Diarrhea Verified 06/24/18 22:52 oseltamivir [From Tamiflu] Allergy GI Upset Verified 06/24/18 22:52 pregabalin [From Lyrica] Allergy Swelling Verified 06/24/18 22:52 Home Medications: Home Medications Bumetanide TAB* 1 mg PO DAILY 06/25/18 [History Confirmed 06/25/18] PMH/Surg Hx/FS Hx/Imm Hx Endocrine/Hematology History: Reports: Hx Anticoagulant Therapy - Aspirin, Hx Diabetes Denies: Hx Thyroid Disease Cardiovascular History: Reports: Hx Auto Implanted Cardiovert Defib - 03/2017, Hx Hypertension Denies: Hx Congestive Heart Failure, Hx Deep Vein Thrombosis, Hx Myocardial Infarction, Hx Pacemaker/ICD Comment Only: Other Cardiovascular Problems/Disorders - PERICARIO EFFUSION 10 YEARS AGO Respiratory History: Denies: Hx Asthma, Hx Chronic Obstructive Pulmonary Disease (COPD), Hx Lung Cancer, Hx Pneumonia, Hx Pulmonary Embolism GI History: Denies: Hx Gall Bladder Disease, Hx Gastrointestinal Bleed, Hx Ulcer, Hx Urosepsis History: Denies: Hx Kidney Stones, Hx Renal Disease Sensory History: Denies: Hx Deafness Neurological History: Reports: Other Neuro Impairments/Disorders - HX OF BACK PROBLEMS FOR YEARS Denies: Hx Dementia, Hx Migraine, Hx Seizures, Hx Transient Ischemic Attacks (TIA) Psychiatric History: Denies: Hx Anxiety, Hx Depression, Hx Schizophrenia, Hx Bipolar Disorder - Surgical History Surgery Procedure, Year, and Place: PERICARDIAL WINDOW. TUBAL LIGATION. 2 C- SECTIONS, MAXILLARY SINUS, AICD Infectious Disease History: No Infectious Disease History: Denies: Hx Clostridium Difficile, Hx Hepatitis, Hx Human Immunodeficiency Virus (HIV), Hx of Known/Suspected MRSA, Hx Shingles, Hx Tuberculosis, Hx Known/ Suspected VRE, Hx Known/Suspected VRSA, History Other Infectious Disease, Traveled Outside the [place] in Last 30 Days - Family History Known Family History: Positive: Cardiac Disease, Hypertension, Diabetes - Social History Alcohol Use: None Substance Use Type: Reports: None Hx Tobacco Use: Yes Smoking Status (MU): Former Smoker Amount Used/How Often: 1 ppd Length of Time of Smoking/Using Tobacco: 10 years Have You Smoked in the Last Year: No Review of Systems Negative: Fever Positive: Palpitations. Negative: Chest Pain Negative: Shortness Of Breath, Cough Negative: Abdominal Pain All Other Systems Reviewed And Are Negative: Yes Physical Exam - Summary Physical Exam Summary: Appearance: Well appearing, no pain distress Skin: warm, dry, reflects adequate perfusion Head/face: normal Eyes: EOMI, GT ENT: normal Neck: supple, non-tender Respiratory: CTA, breath sounds present Cardiovascular: RRR, pulses symmetrical Abdomen: non-tender, soft, Pacemaker left chest Musculoskeletal: normal, strength/ROM intact Neuro: normal, sensory motor intact, A&Ox3 Triage Information Reviewed: Yes Vital Signs On Initial Exam: Initial Vitals Temp Pulse Resp BP Pulse Ox 99.5 F 70 20 134/82 99 06/24/18 22:45 06/24/18 22:45 06/24/18 22:45 06/24/18 22:45 06/24/18 22:45 Vital Signs Reviewed: Yes Diagnostics - Vital Signs Vital Signs Temp Pulse Resp BP Pulse Ox 06/24/18 23:05 65 19 132/58 97 06/24/18 23:04 68 18 90 06/24/18 22:45 99.5 F 70 20 134/82 99 - Laboratory Lab Results: Lab Results 06/24/18 Range/Units 23:00 Urine Color Straw Urine Appearance Clear Urine pH 8.0 (5-9) Ur Specific [place] 1.005 L (1.010-1.030) Urine Protein Negative (Negative) Urine Ketones Negative (Negative) Urine Blood 2+ A (Negative) Urine Nitrate Negative (Negative) Urine Bilirubin Negative (Negative) Urine Urobilinogen Negative (Negative) Ur Leukocyte Esterase 2+ A (Negative) Urine WBC (Auto) 3+(>20/hpf) A (Absent) Urine RBC (Auto) 2+(6-10/hpf) A (Absent) Ur Squamous Epith Cells Present A (Absent) Urine Bacteria Absent (Absent) Urine Glucose 2+(150 mg/dl) A (Negative) Result Diagrams: 06/25/18 04:58 06/25/18 04:58 Lab Statement: Any lab studies that have been ordered have been reviewed, and results considered in the medical decision making process. - Radiology CXR Radiology Interpretation Completed By: ED Physician Summary of Radiographic Findings: No acute infiltrate. Pending official radiology report. 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 hydronephrosis. Multiple calcified stones located in the collecting system left. kidney which are nonobstructing. ED physician has reviewed this imaging report. - EKG 22:50 Cardiac Rate: Other Rate - atrial paced at 75 bpm EKG Rhythm: Sinus Rhythm Summary of EKG Findings: Atrial paced at 75 bpm Re-Evaluation - Re-Evaluation First Eval Re-Evaluation Time: 23:55 Change: Unchanged Comment: Patient feels the same. Second Eval Re-Evaluation Time: 02:10 Change: Unchanged Comment: Informed patient about possible transfer. Third Eval Re-Evaluation Time: 02:40 Change: Unchanged Comment: Informed patient about plan. Course/Dx - Course Course Of Treatment: A 62 y/o female brought in by [facility] ambulance presents to [facility] with a chief complaint of palpitations since the night of 06/24/18. She rates her pain as 0/10. She denies CP, fever, cough, SOB or abd pain. She denies a Hx of emphysema or asthma. She has had a pacemaker since 2017. Her physical exam was unremarkable besides her pacemaker left chest. Lab results were obtained. Her EKG was atrial paced at 75 bpm. Her CXR revealed no acute infiltrate. 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 hydronephrosis. Multiple calcified stones located in the collecting system left. kidney which are nonobstructing. After discussing the case with Dr. Longoria, she recommended transfer due to there not being a urologist alteration inspector. Discussed the case with Dr. Sorto, urologist at [facility], who refused the patient for transfer. Then discussed the case with Dr. Longoria, Hospitalist, who accepted the patient for admission. Dx: acute renal failure, UTI, renal calculi. - Diagnoses Differential Diagnosis/HQI/PQRI: Negative: Other - sepsis Provider Diagnoses: Acute renal failure, Renal calculi, UTI (urinary tract infection) - Physician Notifications Discussed Care Of Patient With: Roxy Longoria Time Discussed With Above Provider: 02:00 Instructed by Provider To: Other - She recommended transfer of the patient since there is no urologist alteration inspector. Discharge - Sign-Out/Discharge Documenting (check all that apply): Patient Departure - admit - Discharge Plan Condition: Fair Disposition: ADMITTED TO [facility] - Billing Disposition and Condition Condition: FAIR Disposition: Admitted to [facility] - Attestation Statements Document Initiated by Scribe: Yes Documenting Scribe: Maged Saenz Provider For Whom Todibe is Documenting (Include Credential): Praful Shelton MD Scribe Attestation: Mgaed Bales, scribed for Praful Shelton MD on 06/25/18 at 0615. Scribe Documentation Reviewed: Yes Provider Attestation: The documentation as recorded by the Maged watkins accurately reflects the service I personally performed and the decisions made by Praful braden MD Status of Scribe Document: Viewed Consult Consult: At 02:[address] Sorto, urologist at [facility], refused the patient for transfer. At 02:35 discussed the case with Dr. Longoria, Hospitalist, who accepted the patient for admission.
[2018-06-24 23:50] LABS: Albumin/Globulin Ratio 1.3 (1-3); Calcium 9.7 mg/dL (8.6-10.3); EGFR Non-African American 17.6 (>60); Potassium 3.3 mmol/L (3.5-5.0); Total Bilirubin 0.7 mg/dL (0.2-1.0)
[2018-06-25 00:57] LABS: C Reactive Protein 3.21 mg/L (<8.01)
[2018-06-25] MEDS ORDERED: Levofloxacin 500 MG IVPREMIX(* 500 MG/100 ML BAG IVPB ONE (02:08)
[2018-06-25] MEDS ORDERED: Acetaminophen TAB* 325 MG PO PRN (03:17)
[2018-06-25] MEDS ORDERED: Dextrose 50% Syringe 50 ML* 25 GM/50 ML SYRINGE IV PUSH PRN (03:21)
[2018-06-25] MEDS ORDERED: Potassium Chlor TAB* 20 MEQ TAB.ER PO ONE ×2 (03:22→16:39)
[2018-06-25] MEDS ORDERED: NS 0.9% 1000 ML* 1,000 ML IV SCH (03:30)
[2018-06-25 03:41] LABS: Magnesium 1.9 mg/dL (1.9-2.7)
[2018-06-25 05:21] LABS: ABS Basophils 0 10^3/ul (0-0.2); ABS Eosinophils 0.1 10^3/ul (0-0.6); ABS Lymphocytes 0.9 10^3/ul (1.0-4.8); ABS Monocytes 0.6 10^3/ul (0-0.8); ABS Neutrophils 3.9 10^3/ul (1.5-7.7); ABS Nucleated RBC 0 10^3/ul; Hematocrit 38 % (35-47); Hemoglobin 12.8 g/dl (12.0-16.0); Lymphocyte % 15.8 %; Mean Corpuscular HGB Conc 34 g/dl (31-36); Mean Corpuscular Hemoglobin 29 pg (27-31); Mean Corpuscular Volume 85 fL (80-97); Mean Platelet Volume 11.6 fL (7.4-10.4); Nucleated Red Blood Cells % 0.1; Platelet Count 101 10^3/ul (150-450); Red Cell Distribution Width 14 % (10.5-15); White Blood Count 5.6 10^3/ul (3.5-10.8)
[2018-06-25] MEDS: Heparin VIAL(*) 5000 UNITS/ML VIAL (FIVE THOUSAND) SUBCUT SCH ×2 (05:24→13:48)
[2018-06-25 05:31] LABS: BUN/Creatinine Ratio 15.4 (8-20); Calcium 9.4 mg/dL (8.6-10.3); EGFR Non-African American 19.2 (>60); Potassium 3.7 mmol/L (3.5-5.0)
--- NOTE | 2018-06-25 06:27 | HP ---
CC: Dr. Sutherland from [place]; Dr. Keene from Cardiology; Dr. Sorto from Urology; Dr. Peter from Nephrology at [place] * HISTORY AND PHYSICAL: DATE OF ADMISSION: 06/25/18 PRIMARY CARE PROVIDER: Dr. Sutherland from [place]. CHIEF COMPLAINT: Palpitations. HISTORY OF PRESENT ILLNESS: Danica Hallman is a 62-year-old female with history of cardiomyopathy with EF of 40%, status post ICD and pacemaker placement in the past, who presented to the hospital complaining of palpitations. The patient stated that it all started a couple of days earlier when she had another bout of her diverticulitis. She stated that occasionally she would get left lower quadrant abdominal pain and diarrhea that would resolve spontaneously. That happened 3 days prior to the patient's current admission. She stated that on Wednesday, she had approximately 5 bowel movements; they were all very loose. She had no abdominal pain, but a day later she saw Dr. Sutherland and noted that her creatinine at that point was 2.1 and she had mild tenderness in the left lower quadrant on evaluation by Dr. Sutherland. Subsequently, she went home and she was doing somewhat okay, but tired. On Wednesday night, after taking a shower, she noted the palpitations. She stated that her heart was beating fast, regularly, and strong. She stated that she went to bed, nevertheless, and at that point, she started feeling short of breath. She called her friend to bring her to [facility] and from [facility], she was brought into the emergency room. Once she was evaluated by the physician, her palpitations resolved. She was not noted to have any abnormalities on her EKG, which showed paced rhythm. Her creatinine is elevated from her baseline at 1.9 to 2.1 to 2.7 today. Her urinalysis is abnormal. Subsequently, the patient had a CT of the abdomen and pelvis, which showed staghorn calculi on the left kidney and hydronephrosis. Initially, the patient was considered for transfer due to acute renal failure, likely UTI, and hydronephrosis due to calculus. Dr. Shelton called Dr. Sorto from urology at [place] for potential transfer. Dr. Sorto evaluated the patient's case, and as per the information that I received from Dr. Shelton, the urologist stated that the patient's staghorn calculus and her hydronephrosis is chronic and unchanged. At that point, Dr. Sorto recommended for the patient to be admitted to our facility and be treated for UTI. The patient is going to be admitted with diagnosis of palpitations and possibility of UTI for further treatment. Please also note that the patient was going to be placed on 24 hours of observation initially. PAST MEDICAL HISTORY: 1. 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 2. The patient's subsequent EF was noted to be 40% in June 2017. 3. The patient had cardiac catheterization in January 2017, which showed RCA that was occluded with good collaterals. The patient stated that Dr. Keene told the patient that she likely had "a silent heart attack" in the past. 4. The patient also has a history of diabetes type 2. 5. Chronic kidney stage 3 due to diabetes with creatinine of approximately 1.7 to 2. 6. Status post pacer and ICD. 7. History of left upper extremity DVT post pacer. 8. Hypertension. 9. Gout. 10. Obesity. MEDICATIONS: Current medications include: 1. Bumex 1 mg daily. 2. Aspirin 81 mg daily. 3. Ferrous sulfate 1 tablet daily. 4. Coreg 12.5 mg b.i.d. 5. Aldactone 25 mg daily. 6. Januvia 100 mg daily. 7. Crestor 40 mg daily. 8. Glimepiride 5 mg b.i.d. ALLERGIES: Include AUGMENTIN, LISINOPRIL, TAMIFLU, and PREGABALIN FAMILY HISTORY: Positive for mother with diabetes and AFib. Father with CVA. Another brother who also had a history of cardiomyopathy and a pericardial window. SOCIAL HISTORY: The patient has a history of smoking 10 packs per day and she quit smoking in 1993. She denies any alcohol or drug use. She is and lives alone. She works at [employer]. She named her brother as her surrogate; her brother's name is Lex Goldstein from [place], [place]. REVIEW OF SYSTEMS: Please see history of present illness. In addition to the above mentioned, the patient stated that she has chronic mild edema of bilateral lower extremities, right usually is more than left. The patient denies any chest pain. She denies any abdominal pain. The remaining 12 systems were reviewed with the patient and were, otherwise, negative. PHYSICAL EXAMINATION GENERAL: The patient is a very pleasant 62-year-old obese female with a BMI of 40. The patient is not in acute distress. Alert, awake, and oriented x3. VITAL SIGNS: Blood pressure 126/71, heart rate of 72 and regular, respiratory rate 17, oxygen saturation 99% on room air, temperature of 99.5. HEENT: Head atraumatic, normocephalic. Eyes: Pupils are equal and reactive to light and accommodation. Oropharynx is clear. Mucosa moist. NECK: Supple. No JVD. No bruit bilaterally. RESPIRATORY: Clear to auscultation bilaterally. CARDIOVASCULAR: Regular rate and rhythm. No murmur. ABDOMEN: Large, obese, soft, nontender. Bowel sounds are present in 4 quadrants. EXTREMITIES: There is trace bilateral ankle edema, right more than left. There is no clubbing or cyanosis. Pulses are +2 bilaterally. NEUROLOGIC: On neuro evaluation, speech clear. Cranial nerves II through XII grossly intact. Motor strength is 5/5 bilaterally. PSYCHIATRIC: On psychiatric evaluation, the patient is alert and oriented x3 with no evidence of anxiety or depression. DIAGNOSTIC STUDIES/LABORATORY DATA: White blood cell count of 5.5, hemoglobin 12.8, hematocrit of 37, platelets of 101. Sodium was 137, potassium 3.3, chloride 104, carbon dioxide 23, BUN 41, creatinine 2.74, magnesium is pending, glucose of 305. Liver function tests show bilirubin of 0.7, AST of 22, ALT of 16, and alkaline phosphatase of 120. Troponin of 0.03. C- reactive protein was 3.2, brain natriuretic peptide was 102, lipase was 71. Urinalysis showed +2 blood, +2 esterase, +3 wbc's, absent bacteria. CT of abdomen and pelvis. Impression: "Staghorn calculus located in the left kidney causing moderate left-sided hydronephrosis. Multiple calcified stones located in the collecting system, left kidney, which are nonobstructing." The patient's EKG showed paced rhythm with heart rate of 75 beats per minute. The patient's chest x-ray was reviewed by myself and showed right lower lobe atelectasis. ASSESSMENT AND PLAN: 1. In regards to the patient's palpitations: The patient could have had an arrhythmia, maybe supraventricular tachycardia since she was hypokalemic. We will interrogate the patient's pacer in the morning and place the patient on telemetry monitored bed. Her potassium is going to be replaced and magnesium is going to be checked. 2. In regards to the patient's abnormal urinalysis: The patient received a dose of Levaquin in the emergency room. I will continue ceftriaxone beginning later on today. Urine cultures are going to be obtained. Please note that as per Dr. Sorto, the patient's left-sided hydronephrosis is chronic and it does not require further urologic intervention at this point. 3. The patient's acute renal failure is likely due to dehydration due to a bout of diverticulitis 3 days earlier. The patient's diarrhea resolved and she is no longer tender on her abdominal evaluation. At this point, the patient's Aldactone and Bumex are going to be held for 1 day and she is going to be placed on gentle intravenous hydration. 4. For DVT prophylaxis: The patient is going to be placed on heparin subcutaneously. 5. The patient has a history of cardiomyopathy. Coreg is going to be continued. 6. For the patient's diabetes: We will continue her glimepiride. Januvia is going to be held. I will also place the patient on insulin sliding scale. 7. The patient's code status is full. TIME SPENT: Approximately 65 minutes were spent on admission of this patient. More than half this time was spent [id number] with the patient during the interview and physical exam. [id number]/[facility] #: [id number] HERON
[2018-06-25] MEDS: Insulin LISPRO* 1 UNITS UNIT SUBCUT SCH ×3 (08:44→16:46)
[2018-06-25] MEDS ORDERED: Carvedilol TAB* 6.25 MG PO SCH ×2 (09:00)
[2018-06-25] MEDS ORDERED: CMCS: Glimepiride (NF) 2 MG TAB PO SCH (09:00)
[2018-06-25] MEDS ORDERED: Aspirin EC TAB* 81 MG TAB.EC PO SCH (09:00)
--- NOTE | 2018-06-25 09:46 | PN ---
Subjective Date of Service: 06/25/18 Interval History: Patient seen and examined at bedside. Denies fever, chills, shortness of breath , chest discomfort, N/V/D, urinary symptoms (dysuria, urinary urgency or urinary frequency). She states that she is feeling much better today than when she came into the hospital. No further palpitations. She states that she was in the shower when she had the palpitation last night. Tele: Paced, rate 70's. Family History: Unchanged from Admission Social History: Unchanged from Admission Past Medical History: Unchanged from Admission Objective Active Medications: Acetaminophen (Tylenol Tab*) 650 mg PO Q4H PRN Reason: FEVER/PAIN Aspirin (Aspirin Ec Tab*) 81 mg PO DAILY PETTY Carvedilol (Coreg Tab*) 12.5 mg PO BID [facility] Dextrose (D50w Syringe 50 Ml*) 12.5 gm IV PUSH .FOR FS < 60 - SS PRN Reason: FS < 60 Glimepiride (Glimepiride (Nf)) 4 mg PO BID [facility] Heparin Sodium (Porcine) (Heparin Vial(*)) 5,000 units SUBCUT Q8HR [facility] Sodium Chloride (Ns 0.9% 1000 Ml*) 1,000 mls @ 75 mls/hr IV PER RATE PETTY Stop: 06/25/18 16:49 Ceftriaxone Sodium 1 gm/ (Sodium Chloride) 50 mls @ 200 mls/hr IVPB Q24H [facility] Insulin Human Lispro (Humalog*) 0 units SUBCUT ACHS PETTY; Protocol Vital Signs - 8 hr 06/25/18 06/25/18 06/25/18 02:00 02:05 02:35 Temperature Pulse Rate 70 68 70 Respiratory 18 10 14 Rate Blood Pressure 87/44 114/63 (mmHg) O2 Sat by Pulse 96 94 93 Oximetry 06/25/18 06/25/18 06/25/18 03:00 03:04 03:10 Temperature Pulse Rate 72 71 Respiratory 19 17 20 Rate Blood Pressure 126/71 (mmHg) O2 Sat by Pulse 96 99 Oximetry 06/25/18 06/25/18 06/25/18 03:50 03:55 07:18 Temperature 98.1 F 98.1 F 98.1 F Pulse Rate 64 64 70 Respiratory 16 16 20 Rate Blood Pressure 124/55 124/55 126/69 (mmHg) O2 Sat by Pulse 97 97 98 Oximetry 06/25/18 08:00 Temperature Pulse Rate Respiratory 20 Rate Blood Pressure (mmHg) O2 Sat by Pulse Oximetry Oxygen Devices in Use Now: None Appearance: NAD, laying in bed Ears/Nose/Mouth/Throat: Mucous Membranes Moist Respiratory: Symmetrical Chest Expansion and Respiratory Effort, Clear to Auscultation Cardiovascular: NL Sounds; No Murmurs; No JVD, RRR Abdominal: NL Sounds; No Tenderness; No Distention Extremities: No Edema Skin: No Rash or Ulcers Neurological: Alert and Oriented x 3, NL Muscle Strength and Tone Lines/Tubes/Other Access: Clean, Dry and Intact Peripheral IV - site benign Nutrition: Taking PO's Result Diagrams: 06/25/18 04:58 06/25/18 04:58 Additional Lab and Data: Assess/Plan/Problems-Billing Assessment: Ms. Hallman is a 62 yo female with PMH significant for nonischemic cardiomyopathy with EF 40%, DM2, CKD3, Left UE DVT, HTN, gout, and obesity who presented to the emergency room with complaints of palpitations. - Patient Problems (1) Intermittent palpitations Code(s): R00.2 - PALPITATIONS SNOMED Code(s): 395513263 Comment: - No events noted on interrogation of pacer - K+ 3.3 and MG+ 1.9 on admission - Electrolytes replaced on admission - Suspect palpitations were secondary to electrolyte abnormalities - Will check a TSH (2) Electrolyte abnormality Code(s): E87.8 - OTH DISORDERS OF ELECTROLYTE AND FLUID BALANCE, NEC SNOMED Code(s): 396836777 Comment: - Received potassium overnight - Hypokalemia: Resolved. Will give 40 meq for K today to get her closer to 4 - Will follow up BMP in 5 days (3) Abnormal urinalysis Code(s): R82.90 - UNSPECIFIED ABNORMAL FINDINGS IN URINE SNOMED Code(s): 441900586 Comment: - Asymptomatic, afebrile and no leukocytosis - Known chronic left-sided hydronephrosis and staghorn calculus - UA appears to be from a dirty catch, not a clean catch - Urine culture pending - Will hold on ABX for now as she is asymptomatic (4) Acute on chronic renal failure Code(s): N17.9 - ACUTE KIDNEY FAILURE, UNSPECIFIED; N18.9 - CHRONIC KIDNEY DISEASE, UNSPECIFIED SNOMED Code(s): 464149959 Comment: - Creatinine improving with IVFs - Suspect secondary to dehydration r/t diarrhea - Follow up BMP as outpatient (5) Cardiomyopathy Code(s): I42.9 - CARDIOMYOPATHY, UNSPECIFIED SNOMED Code(s): 54806751 Comment: - Continue Coreg - Resume Aldactone and Bumex in the AM (6) Diabetes Code(s): E11.9 - TYPE 2 DIABETES MELLITUS WITHOUT COMPLICATIONS SNOMED Code(s) : 33822131 Comment: - Glucose 180-190's - Continue glimepiride - Resume Januvia in the AM (7) Morbid obesity with BMI of 40.0-44.9, adult Code(s): E66.01 - MORBID (SEVERE) OBESITY DUE TO EXCESS CALORIES; Z68.41 - BODY MASS INDEX (BMI) 40.0-44.9, ADULT SNOMED Code(s): 920139518 Comment: - BMI 40.8 (8) DVT prophylaxis Code(s): UWW4989 - SNOMED Code(s): 151391664 (9) Full code status Code(s): Z78.9 - OTHER SPECIFIED HEALTH STATUS SNOMED Code(s): 908626840 Status and Disposition: OBV. Stable for discharge to home later today.
[2018-06-25] MEDS ORDERED: cefTRIAXone(*) 1 GM in NS 0.9% 50 ML* 50 ML IVPB SCH (12:00)
[2018-06-25 15:46] LABS: TSH (Thyroid Stimulating Horm) 3.91 mcIU/mL (0.34-5.60)
[2018-06-25 16:56] VITALS: BP 130/61
--- NOTE | 2018-06-25 21:13 | DS ---
CC: Dr. Shruti Sutherland * DISCHARGE SUMMARY: DATE OF ADMISSION: 06/25/18. DATE OF DISCHARGE: 06/25/18. ATTENDING PHYSICIAN: Dr. Gian Pedroza * (dictated by Krish Araiza NP). PRIMARY CARE PROVIDER: Dr. Shruti Sutherland. PRIMARY DIAGNOSES: 1. Palpitations suspect secondary to electrolyte abnormalities. 2. Hypokalemia, improving, now in normal range. 3. Abnormal urinalysis. 4. Chronic left-sided hydronephrosis and staghorn renal calculi. 5. Acute on chronic renal failure, suspect secondary to dehydration in the setting of diarrhea. SECONDARY DIAGNOSES: 1. Nonischemic cardiomyopathy. 2. Diabetes mellitus. 3. Chronic kidney disease stage 3. 4. History of left upper extremity deep vein thrombosis. 5. Hypertension. 6. Gout. 7. Morbid obesity, BMI 40.8. STUDIES WHILE IN THE HOSPITAL: 1. Chest x-ray on 06/24/18. Radiologist's impression: No active cardiopulmonary disease is noted. 2. Abdomen and pelvis CT scan on 06/24/18. Radiologist's impression: Staghorn calculus located in the left kidney causing moderate left-sided hydronephrosis. Multiple calcified stones located in the collecting system left kidney, which are nonobstructing. DISCHARGE MEDICATIONS: Continued home medications: 1. Carvedilol 12.25 mg oral daily. 2. Bumetanide 1 mg oral daily. 3. Ferrous sulfate 325 mg oral daily. 4. Aspirin 81 mg oral daily. 5. Spironolactone 25 mg oral daily. 6. Januvia 100 mg oral daily. 7. Crestor 40 mg oral daily. 8. Glimepiride 4 mg oral twice daily. HISTORY OF PRESENT ILLNESS/HOSPITAL COURSE: Ms. Hallman is a 62-year-old female with a past medical history significant for nonischemic cardiomyopathy with EF of 40%, status post ICD and pacemaker placement, diabetes mellitus type 2, chronic kidney disease stage 3, history of left upper extremity DVT, hypertension, gout and morbid obesity, who states that she was in her usual state of health. She states that she recently had a about of diverticulitis who is occasionally having left lower quadrant abdominal pain with diarrhea that resulted spontaneously. This was 3 days prior to her presentation to the emergency room. On Wednesday, she had approximately 5 bowel movements that were very loose. She saw her primary care provider, Dr. Sutherland and was noted that her creatinine was elevated at 2.1. She had mild tenderness at that time in her left lower quadrant and she was sent home, doing well, but feeling fatigued. Yesterday, evening while taking a shower, she noted palpitations. She felt though her heart rate was beating jeana regularly and strong. She went to bed, started feeling shortness of breath called a friend to have her take her to urgent care center. After being evaluated at urgent care center, she was transferred to the emergency room for further evaluation of her symptoms. While in the emergency room, her palpitations had resolved, she was noted to have a normal EKG without any abnormalities, showing a paced rhythm. Her creatinine was slightly elevated from her baseline of 1.9 to 2.1 and was 2.7. She has an abnormal urinalysis prompting abdomen and pelvis CT scan showing a staghorn calculi and left kidney hydronephrosis. The ER provider called her urologist, Dr. Macario Kilpatrick. He evaluated the patient's case and stated that the patient's staghorn calculus and hydronephrosis was chronic and unchanged. At that point, he recommended the patient be admitted for treatment of UTI. Hospitalists were asked to evaluate the patient for admission. While in the hospital, she received IV hydration. Her repeat labs this morning showed improvement in her creatinine down from 2.74 in the ER to 2.54 approximately 5 hours later. She had no further palpitations. Her pacemaker was interrogated this morning showing no arrhythmias with a heart rate high of 110. She received potassium. Her potassium improved to 3.7. She received more supplemental potassium today. Her magnesium was 1.9 on admission. Her TSH was 3.91. Her glucoses have been under fair control. She denied any urinary symptoms such as urgency, dysuria, or urinary frequency. She was feeling much better, requesting to go home. At this time, her urine culture is still pending. Due to her being asymptomatic, decision was made to hold on antibiotics until her urine culture came back. It is also to note initially during her admission, her diuretics were held, these will be resumed after discharge. Ms. Hallman is stable for discharge to home. Vital signs are as follows: Temperature 97.9, heart rate 71, respiratory rate 20, O2 sat 99% on room air, blood pressure 100/56. DISCHARGE PLAN: Ms. Hallman will be discharged to home. Activity as tolerated. She should be on a heart-healthy, low-sodium consistent carbohydrate diet. In regards to her palpitations, I suspect this is secondary to her hypocalcemia. Her potassium was in normal range this morning, but she did receive further potassium supplement today as her goal potassium should be greater than 4. She has been encouraged to stay hydrated. She has been asked to get followup labs in 5 to 6 days prior to her followup. She has been asked to call her primary care doctor, Dr. Sutherland to set up a followup appointment. In regards to her acute kidney injury, I suspect this is secondary to dehydration in the setting of diarrhea and being on diuretics. She will resume her diuretics in the morning. Again, she will have followup blood work in 5 to 6 days. As far as her abnormal urinalysis, I suspect the blood shown in her UA is secondary to her staghorn calculi. She currently has no urinary symptoms and I have held antibiotics as the urine culture is pending. Please followup her urine culture. She has been asked to call Dr. Sutherland's office with any urinary symptoms. She has been asked to return to the emergency room for any shortness of breath or chest discomfort. This is a summarized report of a complex medical history and hospital stay. For further details, please see the entire medical record. TIME SPENT: Time for this discharge was approximately 50 minutes, greater than half of that was spent with the patient discussing discharge plans and instructions. CONDITION ON DISCHARGE: Stable. KRISH SMITH, VIKKI [id number]/[facility] #: [id number] HERON
== END 2018-06-25 16:55 | disposition home or self-care (01) ==
LOC: ED 22:36 → SSU 06-25 02:53 → INTOOBSV 06-25 02:53 → MEDTELE 06-25 03:24
PROVIDERS: ADMIT Internal Medicine; ATTEND Student in an Organized Health Care Education/Training Program
DX: R00.2 Palpitations (principal); E87.6 Hypokalemia; R82.90 Unspecified abnormal findings in urine; N13.2 Hydronephrosis with renal and ureteral calculous obstruction; E86.0 Dehydration; N17.9 Acute kidney failure, unspecified; I12.9 Hypertensive chronic kidney disease with stage 1 through stage 4 chronic kidney disease, or unspecified chronic kidney disease; N18.3 Chronic kidney disease, stage 3 (moderate); E11.22 Type 2 diabetes mellitus with diabetic chronic kidney disease; I42.9 Cardiomyopathy, unspecified; Z86.718 Personal history of other venous thrombosis and embolism; M10.9 Gout, unspecified; E66.01 Morbid (severe) obesity due to excess calories; Z68.41 Body mass index [BMI] 40.0-44.9, adult; Z79.899 Other long term (current) drug therapy; Z79.82 Long term (current) use of aspirin; Z87.891 Personal history of nicotine dependence; Z88.8 Allergy status to other drugs, medicaments and biological substances; Z88.1 Allergy status to other antibiotic agents
CPT/HCPCS: 36415; 71045; 74176; 80048; 80053; 81003; 81015; 83690; 83735; 83880; 84443; 84484; 85025; 85610; 85730; 86140; 87077; 87086; 93005; 96365; 96366; 96372; 99284; A9270-GY; G0378; J0696; J1644; J1956

== ENCOUNTER 2018-08-28 13:53 | Emergency (ER) | payer OTHER ==
[2018-08-28 14:04] VITALS: BP 119/50
--- NOTE | 2018-08-28 14:20 | UC ---
Skin Complaint HPI - HPI Summary HPI Summary: cut L middle finger on bread slicer yesterday. bled quite a bit but has since stopped. using bandaid to cover wound cannot recall last Tdap. several year ago - History of Current Complaint Chief Complaint: UCLaceration Time Seen by Provider: 08/28/18 14:07 Stated Complaint: FINGER LACERATION Hx Obtained From: Patient ?: No Onset/Duration: Sudden Onset Current Severity: None - pt has DM neuropathy and feels no pain Pain Intensity: 0 Aggravating Factor(s): Nothing Alleviating Factor(s): Nothing Associated Signs & Symptoms: Positive: Negative Related History: Trauma - Allergy/Home Medications Allergies/Adverse Reactions: Allergies Allergy/AdvReac Type Severity Reaction Status Date / Time iohexol [From Omnipaque] Allergy See Comment Verified 08/28/18 14:04 amoxicillin [From Augmentin] AdvReac DIARRHEA, Verified 08/28/18 14:04 VOMITING clavulanic acid AdvReac DIARRHEA, Verified 08/28/18 14:04 [From Augmentin] VOMITING lisinopril AdvReac Diarrhea Verified 08/28/18 14:04 oseltamivir [From Tamiflu] AdvReac GI Upset Verified 08/28/18 14:04 pregabalin [From Lyrica] AdvReac Swelling Verified 08/28/18 14:04 PMH/Surg Hx/FS Hx/Imm Hx Previously Healthy: Yes Endocrine History: Diabetes, Dyslipidemia Cardiovascular History: Hypertension Other History Of: Anticoagulant Therapy - Aspirin Negative For: HIV, Hepatitis B, Hepatitis C - Surgical History Surgical History: Yes Surgery Procedure, Year, and Place: PERICARDIAL WINDOW. TUBAL LIGATION. 2 C- SECTIONS. MAXILLARY SINUS. AICD - Family History Known Family History: Positive: Cardiac Disease, Hypertension, Diabetes - Social History Occupation: Employed Full-time - [employer] Lives: With Family Alcohol Use: None Substance Use Type: None Smoking Status (MU): Former Smoker Amount Used/How Often: 1 ppd Length of Time of Smoking/Using Tobacco: 10 years Have You Smoked in the Last Year: No When Did the Patient Quit Smoking/Using Tobacco: 20 years - Immunization History Most Recent Influenza Vaccination: 2012 Most Recent Tetanus Shot: 2008? Review of Systems All Other Systems Reviewed And Are Negative: Yes Constitutional: Positive: Negative Skin: Positive: Other - cut finger Respiratory: Positive: Negative Cardiovascular: Positive: Negative Musculoskeletal: Positive: Negative. Negative: Decreased ROM Neurological: Positive: Negative Is Patient Immunocompromised?: No Physical Exam Triage Information Reviewed: Yes Appearance: Well-Appearing, No Pain Distress, Obese Vital Signs: Initial Vital Signs Temp 97.1 F 08/28/18 13:59 Pulse 69 08/28/18 13:59 Resp 16 08/28/18 13:59 BP 119/50 08/28/18 13:59 Pulse Ox 97 08/28/18 13:59 Vital Signs Reviewed: Yes Respiratory Exam: Normal Cardiovascular Exam: Normal Musculoskeletal: Positive: ROM Intact Neurological: Positive: Alert, Other: - nosensation to light touch L finger tips Psychological Exam: Normal Skin: Positive: Other - 1cm oval shaped avulsion wound to volar left 3rd finger without active bleeding, no evidence infection Course/Dx - Diagnoses Provider Diagnosis: Avulsion, skin Discharge - Sign-Out/Discharge Documenting (check all that apply): Patient Departure All imaging exams completed and their final reports reviewed: No Studies - Discharge Plan Condition: Good Disposition: HOME Patient Education Materials: Tdap and Td Vaccines for Adults (ED), Skin Avulsion (ED) Referrals: Shruti Sutherland MD [Primary Care Provider] - 2 Days (if no better) Additional Instructions: keep wound clean, dry and covered. return if you notice signs of infection: fever, redness, drainage, swelling - Billing Disposition and Condition Condition: GOOD Disposition: Home - Attestation Statements Provider Attestation: I was available for consult. This patient was seen by the DOUG. The patient was not presented to , seen by or examined by ak -Fei Gann MD Addendum entered and electronically signed by Mercy Banks NP 08/28/18 17: 34:
[2018-08-28] MEDS ORDERED: Tetan/Diph/Pertus SYR(Tdap)* 0.5 ML SYR(BOOSTRIX) use SYR IM ONE (14:23)
== END 2018-08-28 14:30 | disposition home or self-care (01) ==
LOC: UCEAST 13:53
DX: S61.213A Laceration without foreign body of left middle finger without damage to nail, initial encounter (principal); Z87.891 Personal history of nicotine dependence; E11.9 Type 2 diabetes mellitus without complications; I10 Essential (primary) hypertension; Z88.0 Allergy status to penicillin; Z88.1 Allergy status to other antibiotic agents; Z88.8 Allergy status to other drugs, medicaments and biological substances; W26.8XXA Contact with other sharp object(s), not elsewhere classified, initial encounter; Y92.9 Unspecified place or not applicable
CPT/HCPCS: 90715; 99201; G0463

== ENCOUNTER 2018-10-15 17:37 | Emergency (ER) | payer OTHER ==
[2018-10-15 17:53] VITALS: BP 134/62
--- NOTE | 2018-10-15 18:08 | UC ---
Abdominal Pain Female HPI - HPI Summary HPI Summary: 63-year-old woman comes in with a chief complaint of abdominal pain which started yesterday. Pain is in the lower abdomen. Denies any chest pain. She is nauseous does not feel like eating. Reports normal bowel movements. No fevers. Pain at its worse is 7-8 out of 10. Movement makes it worse. No change in urination. Patient started had her appendix out she has had a C- section she has not had a hysterectomy. She still has her gallbladder. She does have a history of renal insufficiency. - History of Current Complaint Chief Complaint: UCAbdominalPain Stated Complaint: ABD PAIN Time Seen by Provider: 10/15/18 17:43 Pain Intensity: 5 Allergies/Adverse Reactions: Allergies Allergy/AdvReac Type Severity Reaction Status Date / Time iohexol [From Omnipaque] Allergy See Comment Verified 10/15/18 17:53 amoxicillin [From Augmentin] AdvReac DIARRHEA, Verified 10/15/18 17:53 VOMITING clavulanic acid AdvReac DIARRHEA, Verified 10/15/18 17:53 [From Augmentin] VOMITING lisinopril AdvReac Diarrhea Verified 10/15/18 17:53 oseltamivir [From Tamiflu] AdvReac GI Upset Verified 10/15/18 17:53 pregabalin [From Lyrica] AdvReac Swelling Verified 10/15/18 17:53 Home Medications: Home Medications Simethicone [Gas-X] 1 tab PO ONCE PRN 10/15/18 [History Confirmed 10/15/18] PMH/Surg Hx/FS Hx/Imm Hx Previously Healthy: Yes - RENAL INSUFFICIENCY Cardiovascular History: Cardiac Disease Other History Of: Anticoagulant Therapy - Aspirin Negative For: HIV, Hepatitis B, Hepatitis C - Surgical History Surgical History: Yes Surgery Procedure, Year, and Place: PERICARDIAL WINDOW. TUBAL LIGATION. 2 C- SECTIONS. MAXILLARY SINUS. AICD - Family History Known Family History: Positive: Cardiac Disease, Hypertension, Diabetes - Social History Alcohol Use: None Substance Use Type: None Smoking Status (MU): Former Smoker Amount Used/How Often: 1 ppd Length of Time of Smoking/Using Tobacco: 10 years Have You Smoked in the Last Year: No When Did the Patient Quit Smoking/Using Tobacco: 20 years - Immunization History Most Recent Influenza Vaccination: 2012 Most Recent Tetanus Shot: 2008? Review of Systems All Other Systems Reviewed And Are Negative: Yes Constitutional: Positive: Negative Skin: Positive: Negative Eyes: Positive: Negative ENT: Positive: Negative Respiratory: Positive: Negative Cardiovascular: Positive: Negative Gastrointestinal: Positive: Abdominal Pain, Nausea Genitourinary: Positive: Negative Motor: Positive: Negative Neurovascular: Positive: Negative Musculoskeletal: Positive: Negative Neurological: Positive: Negative Psychological: Positive: Negative Is Patient Immunocompromised?: No Physical Exam Triage Information Reviewed: Yes Appearance: Well-Appearing, Well-Nourished, Pain Distress - MILD Vital Signs: Initial Vital Signs Temp 97.1 F 10/15/18 17:43 Pulse 76 10/15/18 17:43 Resp 20 10/15/18 17:43 BP 134/62 10/15/18 17:43 Pulse Ox 97 10/15/18 17:43 Vital Signs Reviewed: Yes Eye Exam: Normal Eyes: Positive: Conjunctiva Clear Neck: Positive: Supple Respiratory: Positive: Lungs clear, Normal breath sounds, No respiratory distress Cardiovascular: Positive: RRR Abdomen Description: Positive: Other: - MILD TENDERNESS MID ABD. Negative: CVA Tenderness (R), CVA Tenderness (L) Bowel Sounds: Positive: Present Musculoskeletal Exam: Normal Musculoskeletal: Positive: Strength Intact, ROM Intact Neurological Exam: Normal Neurological: Positive: Alert, Muscle Tone Normal Psychological Exam: Normal Psychological: Positive: Age Appropriate Behavior Skin Exam: Normal Diagnostics - EKG Cardiac Rate: NL - AT 1750 Cardiac Rhythm: Other Rhythm: Normal - PACED 90BPM Ectopy: PVCs Abd Pain Female Course/Dx - Course Course Of Treatment: Patient's EKG is paced. There are PVCs. Patient denies any chest pain. The location of the abdominal pain seems somewhat variable between epigastrium and lower abdomen. With the relative severity of the abdominal pain and our inability to timely lab work and the patient's history of renal insufficiency I recommended further evaluation and care and emergency Department. She declined ambulance transport will go by POV. - Differential Dx/Diagnosis Provider Diagnosis: Abdominal pain Discharge - Sign-Out/Discharge Documenting (check all that apply): Patient Departure All imaging exams completed and their final reports reviewed: No Studies - Discharge Plan Condition: Stable Disposition: HOME-RECOMMEND TO ED Referrals: Shruti Sutherland MD [Primary Care Provider] - Additional Instructions: GO DIRECTLY TO THE EMERGENCY DEPARTMENT FOR FURTHER EVALUATION OF YOUR ABDOMINAL PAIN - Billing Disposition and Condition Condition: STABLE Disposition: Home-Recommend to ED
== END 2018-10-15 18:20 | disposition home health service (06) ==
LOC: UCEAST 17:37
DX: R10.30 Lower abdominal pain, unspecified (principal); R11.0 Nausea; Z87.891 Personal history of nicotine dependence; Z88.0 Allergy status to penicillin; Z88.8 Allergy status to other drugs, medicaments and biological substances; Z91.041 Radiographic dye allergy status
CPT/HCPCS: 93005; 99212; G0463

== ENCOUNTER 2018-10-15 18:36 | Emergency (ER) | payer OTHER ==
[2018-10-15 21:23] LABS: ABS Basophils 0.1 10^3/ul (0-0.2); ABS Eosinophils 0.1 10^3/ul (0-0.6); ABS Monocytes 0.6 10^3/ul (0-0.8); ABS Neutrophils 6.5 10^3/ul (1.5-7.7); ABS Nucleated RBC 0 10^3/ul; Eosinophil % 1.2 %; Hematocrit 39 % (33-41); Hemoglobin 12.7 g/dL (12.0-16.0); Lymphocyte % 11.7 %; Mean Corpuscular HGB Conc 33 g/dL (31-36); Mean Corpuscular Hemoglobin 28 pg (27-31); Mean Corpuscular Volume 84 fL (80-97); Nucleated Red Blood Cells % 0; Platelet Count 109 10^3/uL (150-450); Red Blood Count 4.57 10^6 /uL (3.70-4.87); Red Cell Distribution Width 14 % (10.5-15); White Blood Count 8.2 10^3/uL (3.5-10.8)
[2018-10-15 21:39] LABS: Albumin/Globulin Ratio 1.4 (1-3); BUN/Creatinine Ratio 19.4 (8-20); C Reactive Protein 2.54 mg/L (<8.01); Calcium 9.6 mg/dL (8.6-10.3); EGFR African American 24.4 (>60); EGFR Non-African American 20.2 (>60); Globulin 2.9 g/dL (2-4); Potassium 3.4 mmol/L (3.5-5.0); Total Bilirubin 0.7 mg/dL (0.2-1.0); Total Protein 6.9 g/dL (6.4-8.9)
--- NOTE | 2018-10-16 00:14 | ED ---
GI/ HPI - HPI Summary HPI Summary: 63-year-old female presents with lower abdominal pain today. She states that this is similar to when she has had issues with her fibroid in the past . She denies any vaginal bleeding. Pain is worse when she walks. Denies any diarrhea. Normal bowel movement today. No nausea or vomiting. She did have some epigastric pain today. No chest pain or shortness breath. She was at and sent here. No fevers. No urinary symptoms. Has history of renal calculi. Denies any flank pain. - History of Current Complaint Chief Complaint: EDAbdPain Time Seen by Provider: 10/15/18 22:57 Stated Complaint: ABD PAIN PER PT Pain Intensity: 5 - Additional Pertinent History Primary Care Physician: [id number] - Allergy/Home Medications Allergies/Adverse Reactions: Allergies Allergy/AdvReac Type Severity Reaction Status Date / Time iohexol [From Omnipaque] Allergy See Comment Verified 10/15/18 17:53 amoxicillin [From Augmentin] AdvReac DIARRHEA, Verified 10/15/18 17:53 VOMITING clavulanic acid AdvReac DIARRHEA, Verified 10/15/18 17:53 [From Augmentin] VOMITING lisinopril AdvReac Diarrhea Verified 10/15/18 17:53 oseltamivir [From Tamiflu] AdvReac GI Upset Verified 10/15/18 17:53 pregabalin [From Lyrica] AdvReac Swelling Verified 10/15/18 17:53 PMH/Surg Hx/FS Hx/Imm Hx Endocrine/Hematology History: Reports: Hx Anticoagulant Therapy - Aspirin, Hx Diabetes Denies: Hx Thyroid Disease Cardiovascular History: Reports: Hx Auto Implanted Cardiovert Defib - 03/2017, Hx Hypertension Denies: Hx Congestive Heart Failure, Hx Deep Vein Thrombosis, Hx Myocardial Infarction, Hx Pacemaker/ICD Comment Only: Other Cardiovascular Problems/Disorders - PERICARIO EFFUSION 10 YEARS AGO Respiratory History: Denies: Hx Asthma, Hx Chronic Obstructive Pulmonary Disease (COPD), Hx Lung Cancer, Hx Pneumonia, Hx Pulmonary Embolism GI History: Denies: Hx Gall Bladder Disease, Hx Gastrointestinal Bleed, Hx Ulcer, Hx Urosepsis History: Denies: Hx Kidney Stones, Hx Renal Disease Sensory History: Denies: Hx Deafness Neurological History: Reports: Other Neuro Impairments/Disorders - HX OF BACK PROBLEMS FOR YEARS Denies: Hx Dementia, Hx Migraine, Hx Seizures, Hx Transient Ischemic Attacks (TIA) Psychiatric History: Denies: Hx Anxiety, Hx Depression, Hx Schizophrenia, Hx Bipolar Disorder - Surgical History Surgery Procedure, Year, and Place: PERICARDIAL WINDOW. TUBAL LIGATION. 2 C- SECTIONS. MAXILLARY SINUS. AICD Infectious Disease History: No Infectious Disease History: Denies: Hx Clostridium Difficile, Hx Hepatitis, Hx Human Immunodeficiency Virus (HIV), Hx of Known/Suspected MRSA, Hx Shingles, Hx Tuberculosis, Hx Known/ Suspected VRE, Hx Known/Suspected VRSA, History Other Infectious Disease, Traveled Outside the [place] in Last 30 Days - Family History Known Family History: Positive: Cardiac Disease, Hypertension, Diabetes - Social History Alcohol Use: None Substance Use Type: Reports: None Hx Tobacco Use: Yes Smoking Status (MU): Former Smoker Amount Used/How Often: 1 ppd Length of Time of Smoking/Using Tobacco: 10 years Have You Smoked in the Last Year: No Review of Systems Negative: Fever Negative: Chest Pain Negative: Shortness Of Breath Positive: Abdominal Pain. Negative: Vomiting, Diarrhea, Nausea All Other Systems Reviewed And Are Negative: Yes Physical Exam Triage Information Reviewed: Yes Vital Signs On Initial Exam: Initial Vitals Temp Pulse Resp BP Pulse Ox 97.4 F 63 14 105/50 96 10/15/18 18:43 10/15/18 18:43 10/15/18 18:43 10/15/18 18:43 10/15/18 18:43 Vital Signs Reviewed: Yes Appearance: Positive: Well-Appearing Skin: Positive: Warm, Dry Head/Face: Positive: Normal Head/Face Inspection Eyes: Positive: Normal, EOMI, GT, Conjunctiva Clear ENT: Positive: Normal ENT inspection, Pharynx normal, TMs normal Respiratory/Lung Sounds: Positive: Clear to Auscultation, Breath Sounds Present Cardiovascular: Positive: Normal, RRR Abdomen Description: Positive: Soft, Other: - tenderness lower abd Bowel Sounds: Positive: Present Musculoskeletal: Positive: Normal Neurological: Positive: Normal Psychiatric: Positive: Normal Diagnostics - Vital Signs Vital Signs Temp Pulse Resp BP Pulse Ox 10/15/18 20:38 97.4 F 68 16 105/60 95 10/15/18 18:43 97.4 F 63 14 105/50 96 - Laboratory Lab Results: Lab Results 10/15/18 10/15/18 10/15/18 Range/Units 21:06 21:06 21:06 WBC 8.2 (3.5-10.8) 10^3/uL RBC 4.57 (3.70-4.87) 10^6 /uL Hgb 12.7 (12.0-16.0) g/dL Hct 39 (33-41) % MCV 84 (80-97) fL MCH 28 (27-31) pg MCHC 33 (31-36) g/dL RDW 14 (10.5-15) % Plt Count 109 L (150-450) 10^3/uL MPV 12.0 H (7.4-10.4) fL Neut % (Auto) 79.0 % Lymph % (Auto) 11.7 % Bonner % (Auto) 7.2 % Eos % (Auto) 1.2 % Baso % (Auto) 0.9 % Absolute Neuts (auto) 6.5 (1.5-7.7) 10^3/ul Absolute Lymphs (auto) 1.0 (1.0-4.8) 10^3/ul Absolute Monos (auto) 0.6 (0-0.8) 10^3/ul Absolute Eos (auto) 0.1 (0-0.6) 10^3/ul Absolute Basos (auto) 0.1 (0-0.2) 10^3/ul Absolute Nucleated RBC 0 10^3/ul Nucleated RBC % 0 Sodium 142 (135-145) mmol/L Potassium 3.4 L (3.5-5.0) mmol/L Chloride 108 (101-111) mmol/L Carbon Dioxide 23 (22-32) mmol/L Anion Gap 11 (2-11) mmol/L BUN 47 H (6-24) mg/dL Creatinine 2.42 H (0.51-0.95) mg/dL Est GFR ( Amer) 24.4 (>60) Est GFR (Non-Af Amer) 20.2 (>60) BUN/Creatinine Ratio 19.4 (8-20) Glucose 72 (70-100) mg/dL Lactic Acid 0.9 (0.5-2.0) mmol/L Calcium 9.6 (8.6-10.3) mg/dL Total Bilirubin 0.70 (0.2-1.0) mg/dL AST 27 (13-39) U/L ALT 18 (7-52) U/L Alkaline Phosphatase 90 (34-104) U/L C-Reactive Protein 2.54 (<8.01) mg/L Total Protein 6.9 (6.4-8.9) g/dL Albumin 4.0 (3.2-5.2) g/dL Globulin 2.9 (2-4) g/dL Albumin/Globulin Ratio 1.4 (1-3) Lipase 54 (11.0-82.0) U/L Result Diagrams: 10/15/18 21:06 10/15/18 21:06 Lab Statement: Any lab studies that have been ordered have been reviewed, and results considered in the medical decision making process. - CT abd CT Interpretation Completed By: Radiologist Summary of CT Findings: IMPRESSION: 1. 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 left hydronephrosis. 2. Additional nonobstructing bilateral renal stones. 3. A small hiatal hernia. 4. Colonic diverticulosis with no evidence of acute diverticulitis. 5. Hepatomegaly. 6. Mildly distended gallbladder with no calcified stones. 7. A 2.5 cm hypodense lesion in the uterine fundus which may represent a. fibroid. GIGU Course/Dx - Course Course Of Treatment: 63-year-old female presents with lower abdominal pain today. She states that this is similar to when she has had issues with her fibroid in the past . She denies any vaginal bleeding. Pain is worse when she walks. Denies any diarrhea. Normal bowel movement today. No nausea or vomiting. She did have some epigastric pain today. No chest pain or shortness breath. She was at and sent here. No fevers. No urinary symptoms. Has history of renal calculi. Denies any flank pain. On exam has mild tenderness lower abdomen. wbc normal. CRP normal. CT shows fibroid. patient states that has no uti symptoms so will wait for final culture to see if is significant culture. Discussed results with patient and says will follow [employer]. Patient understands and agrees with plan. - Diagnoses Differential Diagnoses - Female: Diverticulitis, Gastroenteritis (Viral), Urinary Tract Infection Provider Diagnoses: Abdominal pain Discharge - Sign-Out/Discharge Documenting (check all that apply): Patient Departure Patient Received Moderate/Deep Sedation with Procedure: No - Discharge Plan Condition: Good Disposition: HOME Patient Education Materials: Abdominal Pain (ED) Referrals: Shruti Suthelrand MD [Primary Care Provider] - Ya Cui MD [Medical Doctor] - Additional Instructions: follow up with pebble mill operator Take tyenlol as needed for pain Return to ED if develop any new or worsening symptoms - Billing Disposition and Condition Condition: GOOD Disposition: Home
[2018-10-16 01:51] VITALS: BP 134/66
[2018-10-16 01:55] LABS: Urine Appearance Cloudy; Urine Bacteria Absent (Absent); Urine Bilirubin Negative (Negative); Urine Blood 2+ (Negative); Urine Color Yellow; Urine Glucose Negative (Negative); Urine Ketones Negative (Negative); Urine Nitrite Negative (Negative); Urine Protein 1+(30 mg/dL) (Negative); Urine Red Blood Cell 2+(6-10/hpf) (Absent); Urine Specific Gravity 1.012 (1.010-1.030); Urine Squamous Epithelial Cell Present (Absent); Urine Urobilinogen Negative (Negative); Urine White Blood Cell 3+(>20/hpf) (Absent)
--- NOTE | 2018-10-18 06:20 | PN ---
Progress Note - Progress Note Date of Service: 10/15/18 Note: Called patient at 10:20 AM on 10/18/18 to make aware of urine culture final results Urine culture final grew group B strep Patient was placed on Keflex Sensitivities will not be obtained Patient states she is feeling improved and denies any symptoms Appointment with JOB PLACEMENT OFFICER on 11/18/18
== END 2018-10-16 01:45 | disposition home or self-care (01) ==
LOC: ED 18:36
DX: R10.30 Lower abdominal pain, unspecified (principal); Z87.442 Personal history of urinary calculi; K44.9 Diaphragmatic hernia without obstruction or gangrene; R16.0 Hepatomegaly, not elsewhere classified; I10 Essential (primary) hypertension; Z95.810 Presence of automatic (implantable) cardiac defibrillator; Z87.891 Personal history of nicotine dependence
CPT/HCPCS: 36415; 74176; 80053; 81003; 81015; 83605; 83690; 85025; 86140; 87077; 87086; 99282

== ENCOUNTER 2019-02-04 12:00 | Emergency (ER) | payer OTHER ==
[2019-02-04 12:12] VITALS: BP 111/55
--- NOTE | 2019-02-04 12:37 | UC ---
Back Pain HPI - HPI Summary HPI Summary: left sided back pain worsening over the past 2 weeks---has history of sciatica and back pain and this is different she usually gets relief with Tylenol and is no longer-- - History of Current Complaint Chief Complaint: UCBackPain Stated Complaint: back/leg pain Time Seen by Provider: 02/04/19 12:15 Hx Obtained From: Patient ?: No Onset/Duration: Gradual Onset, Lasting Weeks - 2, Worse Since - today (but also has not taken any pain medication today) Timing: Constant Pain Intensity: 7 Pain Scale Used: 0-10 Numeric Back Pain: Is Diffuse - left flank and also has pain in buttock radiating down leg but stops and knee Character: Aching Aggravating Factor(s): Nothing Alleviating Factor(s): OTC Meds Associated Signs And Symptoms: Positive: Flank Pain. Negative: Swelling, Redness, Weakness, Numbness, Tingling - Allergies/Home Medications Allergies/Adverse Reactions: Allergies Allergy/AdvReac Type Severity Reaction Status Date / Time iohexol [From Omnipaque] Allergy See Comment Verified 02/04/19 12:12 amoxicillin [From Augmentin] AdvReac DIARRHEA, Verified 02/04/19 12:12 VOMITING clavulanic acid AdvReac DIARRHEA, Verified 02/04/19 12:12 [From Augmentin] VOMITING lisinopril AdvReac Diarrhea Verified 02/04/19 12:12 oseltamivir [From Tamiflu] AdvReac GI Upset Verified 02/04/19 12:12 pregabalin [From Lyrica] AdvReac Swelling Verified 02/04/19 12:12 Home Medications: Home Medications Insulin Glargine,Hum.rec.anlog [Bandaraglrandolph Gallo U-100] 20 units .ROUTE DAILY [History Confirmed 02/04/19] PMH/Surg Hx/FS Hx/Imm Hx Previously Healthy: No Endocrine History: Diabetes, Dyslipidemia Cardiovascular History: Hypertension GI/ History: Kidney Stones, Other Other GI/ History: ARF Other History Of: Anticoagulant Therapy - Aspirin Negative For: HIV, Hepatitis B, Hepatitis C - Surgical History Surgical History: Yes Surgery Procedure, Year, and Place: PERICARDIAL WINDOW. TUBAL LIGATION. 2 C- SECTIONS. MAXILLARY SINUS. AICD - Family History Known Family History: Positive: Cardiac Disease, Hypertension, Diabetes - Social History Occupation: Employed Full-time Lives: With Family Alcohol Use: None Substance Use Type: None Smoking Status (MU): Former Smoker Amount Used/How Often: 1 ppd Length of Time of Smoking/Using Tobacco: 10 years Have You Smoked in the Last Year: No When Did the Patient Quit Smoking/Using Tobacco: 20 years - Immunization History Most Recent Influenza Vaccination: 2012 Most Recent Tetanus Shot: 2008? Review of Systems All Other Systems Reviewed And Are Negative: Yes Constitutional: Positive: Negative Skin: Positive: Negative Eyes: Positive: Negative ENT: Positive: Negative Respiratory: Positive: Negative Cardiovascular: Positive: Negative Gastrointestinal: Positive: Negative Genitourinary: Positive: Other - left flank pain Motor: Positive: Negative Neurovascular: Positive: Negative Musculoskeletal: Positive: Arthralgia - left mid leg Neurological: Positive: Negative Psychological: Positive: Negative Is Patient Immunocompromised?: No Physical Exam Triage Information Reviewed: Yes Appearance: Well-Appearing, No Pain Distress, Obese Vital Signs: Initial Vital Signs Temp 98.3 F 02/04/19 12:09 Pulse 73 02/04/19 12:09 Resp 15 02/04/19 12:09 BP 111/55 02/04/19 12:09 Pulse Ox 100 02/04/19 12:09 Vital Signs Reviewed: Yes Eye Exam: Normal Eyes: Positive: Conjunctiva Clear ENT Exam: Normal ENT: Positive: Normal ENT inspection, Hearing grossly normal. Negative: Trismus , Muffled voice, Hoarse voice Dental Exam: Normal Neck exam: Normal Neck: Positive: Supple, Nontender Respiratory Exam: Normal Respiratory: Positive: Chest non-tender, No respiratory distress, No accessory muscle use Cardiovascular Exam: Normal Cardiovascular: Positive: RRR, Pulses Normal, Brisk Capillary Refill Musculoskeletal Exam: Normal Musculoskeletal: Positive: Strength Intact, ROM Intact, No Edema Neurological Exam: Normal Neurological: Positive: Alert, Muscle Tone Normal Psychological Exam: Normal Skin Exam: Normal Back Pain Course/Dx - Course Course Of Treatment: patient will go to emergency department for further assessment of flank pain - Differential Dx/Diagnosis Provider Diagnosis: Hematuria, Acute left flank pain, Degenerative joint disease (DJD) of lumbar spine Discharge - Sign-Out/Discharge Documenting (check all that apply): Patient Departure All imaging exams completed and their final reports reviewed: No Studies - Discharge Plan Condition: Stable Disposition: HOME Referrals: Shruti Sutherland MD [Primary Care Provider] - Additional Instructions: Patient will be going to emergency department for further assessment - Billing Disposition and Condition Condition: STABLE Disposition: Home - Attestation Statements Provider Attestation: Per institutional requirements, I have reviewed the chart, however, I was not consulted specifically or made aware of this patient by the midlevel provider. I did not personally evaluate, interact with , or disposition this patient.
--- NOTE | 2019-02-05 20:33 | UC ---
- Progress Note Progress Note: PLEASE CALL PATIENT. SHE WAS ADVISED TO GO TO THE ER AFTER HER VISIT TO THE YESTERDAY HOWEVER IT DOES NOT APPEAR SHE DID SO. CONFIRM SHE IS FEELING BETTER AND THAT SHE HAS FOLLOW-UP WITH HER PCP. URINE CULTURE SHOWS MODERATE GBS. IF SHE IS NOT HAVING ANY URINARY SYMPTOMS WOULD NOT TREAT THIS. Course/Dx - Diagnoses Provider Diagnoses: Hematuria, Acute left flank pain, Degenerative joint disease (DJD) of lumbar spine Discharge - Sign-Out/Discharge Documenting (check all that apply): Post-Discharge Follow Up All imaging exams completed and their final reports reviewed: No Studies - Discharge Plan Condition: Stable Disposition: HOME Referrals: Shruti Sutherland MD [Primary Care Provider] - Additional Instructions: Patient will be going to emergency department for further assessment - Billing Disposition and Condition Condition: STABLE Disposition: Home
== END 2019-02-04 13:04 | disposition home or self-care (01) ==
LOC: UCEAST 12:00
DX: R10.9 Unspecified abdominal pain (principal); R31.9 Hematuria, unspecified; M47.9 Spondylosis, unspecified; E11.9 Type 2 diabetes mellitus without complications; I10 Essential (primary) hypertension; E78.5 Hyperlipidemia, unspecified; Z79.82 Long term (current) use of aspirin; Z79.4 Long term (current) use of insulin; Z87.891 Personal history of nicotine dependence
CPT/HCPCS: 81002; 87086; 87088; 99212; G0463

== ENCOUNTER 2022-09-02 12:28 | Inpatient (IN) ==
[2022-09-02 13:25] LABS: Hematocrit 42 % (35-47); Hemoglobin 13.7 g/dL (12.0-16.0); Mean Corpuscular HGB Conc 33 g/dL (31-36); Mean Corpuscular Hemoglobin 29 pg (27-31); Mean Corpuscular Volume 89 fL (80-97); Red Blood Count 4.73 10^6 /uL (3.70-4.87); Red Cell Distribution Width 14 % (10-15); White Blood Count 8.6 10^3/uL (3.5-10.8)
[2022-09-02 13:32] LABS: High Sens Troponin Baseline 53 pg/mL (<15)
[2022-09-02 13:35] LABS: ALT 9 U/L (7-52); Albumin 3.7 g/dL (3.2-5.2); Albumin/Globulin Ratio 1.4 (1-3); Alkaline Phosphatase 111 U/L (35-149); Blood Urea Nitrogen 47 mg/dL (6-24); CO2 Carbon Dioxide 25 mmol/L (22-32); Chloride 107 mmol/L (101-111); Creatinine, Serum 2.85 mg/dL (0.51-0.95); Globulin 2.6 g/dL (2-4); Glucose 119 mg/dL (70-100); Sodium 139 mmol/L (135-145); Total Protein 6.3 g/dL (6.4-8.9); eGFR CKD-EPI 17.7 (>60)
[2022-09-02 13:36] LABS: Anion Gap 7 mmol/L (2-11)
[2022-09-02 13:42] LABS: ABS Basophils 0.1 10^3/ul (0-0.2); ABS Eosinophils 0.1 10^3/ul (0-0.6); ABS Lymphocytes 0.7 10^3/ul (1.0-4.8); ABS Monocytes 0.6 10^3/ul (0-0.8); ABS Neutrophils 7.1 10^3/ul (1.5-7.7); Eosinophil % 1.7 %; Mean Platelet Volume 10.6 fL (7.4-10.4); Platelet Count 99 10^3/uL (150-450)
[2022-09-02 14:41] LABS: INR 1.12 (0.88-1.18)
[2022-09-02 14:42] LABS: High Sensitivity Troponin 1 Hr 152 pg/mL (<15)
[2022-09-02] MEDS ORDERED: Dextrose 50% Syringe 50 ml 25 GM/50 ML SYRINGE IV PUSH PRN (16:35)
[2022-09-02] MEDS ORDERED: Heparin 5000 UNITS/ML 1 mL VIAL ONE (17:29)
[2022-09-02] MEDS: Heparin DRIP 25,000 UNITS BAG 25,000 UNITS/500 ML BAG IV SCH (17:32)
[2022-09-02] MEDS ORDERED: Heparin 5000 UNITS/ML 1 mL VIAL IV SCH (18:00)
[2022-09-02 18:52] LABS: ABS Basophils 0.1 10^3/ul (0-0.2); ABS Eosinophils 0.1 10^3/ul (0-0.6); ABS Lymphocytes 1.1 10^3/ul (1.0-4.8); ABS Monocytes 0.7 10^3/ul (0-0.8); ABS Neutrophils 9.5 10^3/ul (1.5-7.7); Hematocrit 43 % (35-47); Hemoglobin 14.4 g/dL (12.0-16.0); Lymphocyte % 9.9 %; Mean Corpuscular HGB Conc 33 g/dL (31-36); Mean Corpuscular Hemoglobin 30 pg (27-31); Mean Corpuscular Volume 89 fL (80-97); Mean Platelet Volume 10.4 fL (7.4-10.4); Platelet Count 128 10^3/uL (150-450); Red Blood Count 4.88 10^6 /uL (3.70-4.87); Red Cell Distribution Width 14 % (10-15); White Blood Count 11.6 10^3/uL (3.5-10.8)
[2022-09-02 19:24] LABS: Creatinine, Serum 2.98 mg/dL (0.51-0.95); eGFR CKD-EPI 16.8 (>60)
[2022-09-03 06:16] LABS: ABS Basophils 0.1 10^3/ul (0-0.2); ABS Eosinophils 0.2 10^3/ul (0-0.6); ABS Lymphocytes 1.1 10^3/ul (1.0-4.8); ABS Monocytes 0.9 10^3/ul (0-0.8); ABS Neutrophils 6.9 10^3/ul (1.5-7.7); Eosinophil % 1.7 %; Hematocrit 38 % (35-47); Hemoglobin 12.2 g/dL (12.0-16.0); Lymphocyte % 12.5 %; Mean Corpuscular HGB Conc 33 g/dL (31-36); Mean Corpuscular Hemoglobin 29 pg (27-31); Mean Corpuscular Volume 88 fL (80-97); Mean Platelet Volume 11.4 fL (7.4-10.4); Nucleated Red Blood Cells % 0.1; Platelet Count 104 10^3/uL (150-450); Red Cell Distribution Width 14 % (10-15); White Blood Count 9.1 10^3/uL (3.5-10.8)
[2022-09-03 06:36] LABS: Creatinine, Serum 2.99 mg/dL (0.51-0.95); Potassium 4.3 mmol/L (3.5-5.0); eGFR CKD-EPI 16.7 (>60)
[2022-09-03] MEDS: Aspirin EC 81 mg TAB.EC (enteric coated) PO SCH (08:43)
[2022-09-03] MEDS ORDERED: Ondansetron 4 mg VIAL 2 MG/ML 2 ml VIAL IV PRN (08:48)
[2022-09-03] MEDS ORDERED: Sulfur Hexaflouride MICROSPHR 25 MG VIAL ONE (12:37)
[2022-09-03] MEDS: Heparin DRIP 25,000 UNITS BAG 25,000 UNITS/500 ML BAG IV SCH (14:27)
[2022-09-03 19:26] LABS: Urine Appearance Cloudy; Urine Bacteria Absent (Absent); Urine Bilirubin Negative (Negative); Urine Blood 3+ (Negative); Urine Color Yellow; Urine Glucose Negative (Negative); Urine Ketones Negative (Negative); Urine Nitrite Negative (Negative); Urine Protein Negative (Negative); Urine Red Blood Cell 1+(3-5/hpf) (Absent); Urine Squamous Epithelial Cell Present (Absent); Urine Urobilinogen Negative (Negative); Urine White Blood Cell 3+(>20/hpf) (Absent)
[2022-09-04 06:09] LABS: ABS Basophils 0.1 10^3/ul (0-0.2); ABS Eosinophils 0.2 10^3/ul (0-0.6); ABS Lymphocytes 1.1 10^3/ul (1.0-4.8); ABS Monocytes 0.6 10^3/ul (0-0.8); ABS Neutrophils 5.7 10^3/ul (1.5-7.7); Hematocrit 39 % (35-47); Hemoglobin 12.6 g/dL (12.0-16.0); Mean Corpuscular HGB Conc 33 g/dL (31-36); Mean Corpuscular Hemoglobin 29 pg (27-31); Mean Corpuscular Volume 88 fL (80-97); Mean Platelet Volume 10.6 fL (7.4-10.4); Platelet Count 107 10^3/uL (150-450); Red Blood Count 4.42 10^6 /uL (3.70-4.87); Red Cell Distribution Width 14 % (10-15); White Blood Count 7.6 10^3/uL (3.5-10.8)
[2022-09-04 06:23] LABS: Calcium 8.8 mg/dL (8.6-10.3); Creatinine, Serum 3.01 mg/dL (0.51-0.95); Magnesium 1.9 mg/dL (1.9-2.7); Potassium 4.4 mmol/L (3.5-5.0); eGFR CKD-EPI 16.6 (>60)
[2022-09-04] MEDS: Aspirin EC 81 mg TAB.EC (enteric coated) PO SCH (08:17)
[2022-09-04 11:52] LABS: C Reactive Protein 12.91 mg/L (<8.01)
[2022-09-04] MEDS: Heparin DRIP 25,000 UNITS BAG 25,000 UNITS/500 ML BAG IV SCH (12:26)
[2022-09-04 12:40] LABS: HDL Cholesterol 34.5 mg/dL
[2022-09-04 14:02] LABS: Erythrocyte Sed Rate 44 mm/Hr (0-29)
[2022-09-04 14:58] LABS: High Sensitivity Troponin 1 Hr 33 pg/mL (<15)
[2022-09-05 05:56] LABS: Hematocrit 37 % (35-47); Hemoglobin 12.4 g/dL (12.0-16.0); Mean Corpuscular HGB Conc 33 g/dL (31-36); Mean Corpuscular Hemoglobin 29 pg (27-31); Mean Corpuscular Volume 87 fL (80-97); Mean Platelet Volume 10.9 fL (7.4-10.4); Platelet Count 100 10^3/uL (150-450); Red Blood Count 4.26 10^6 /uL (3.70-4.87); Red Cell Distribution Width 15 % (10-15); White Blood Count 8.3 10^3/uL (3.5-10.8)
[2022-09-05 06:44] LABS: Calcium 9.1 mg/dL (8.6-10.3); Potassium 4.2 mmol/L (3.5-5.0)
[2022-09-05 06:50] LABS: Creatinine, Serum 3.09 mg/dL (0.51-0.95)
[2022-09-05] MEDS: Aspirin EC 81 mg TAB.EC (enteric coated) PO SCH (08:19)
[2022-09-05] MEDS: Heparin DRIP 25,000 UNITS BAG 25,000 UNITS/500 ML BAG IV SCH (10:15)
[2022-09-06 07:09] LABS: Hematocrit 36 % (35-47); Hemoglobin 11.9 g/dL (12.0-16.0); Mean Corpuscular HGB Conc 33 g/dL (31-36); Mean Corpuscular Hemoglobin 29 pg (27-31); Mean Corpuscular Volume 87 fL (80-97); Platelet Count 105 10^3/uL (150-450); Red Blood Count 4.15 10^6 /uL (3.70-4.87); Red Cell Distribution Width 14 % (10-15); White Blood Count 7.5 10^3/uL (3.5-10.8)
[2022-09-06] MEDS: Aspirin EC 81 mg TAB.EC (enteric coated) PO SCH (07:20)
[2022-09-06 07:24] LABS: Calcium 9.1 mg/dL (8.6-10.3); Creatinine, Serum 2.95 mg/dL (0.51-0.95); Magnesium 1.9 mg/dL (1.9-2.7); Potassium 4.2 mmol/L (3.5-5.0)
[2022-09-06] MEDS: Heparin DRIP 25,000 UNITS BAG 25,000 UNITS/500 ML BAG IV SCH (07:24)
[2022-09-07] MEDS: Heparin DRIP 25,000 UNITS BAG 25,000 UNITS/500 ML BAG IV SCH (05:43)
[2022-09-07 07:08] LABS: Calcium 9.3 mg/dL (8.6-10.3); Creatinine, Serum 3.36 mg/dL (0.51-0.95); Phosphorus 4.5 mg/dL (2.5-5.0); Potassium 4.4 mmol/L (3.5-5.0); eGFR CKD-EPI 14.5 (>60)
[2022-09-07 07:10] LABS: Hematocrit 37 % (35-47); Hemoglobin 12.5 g/dL (12.0-16.0); Mean Corpuscular HGB Conc 34 g/dL (31-36); Mean Corpuscular Hemoglobin 30 pg (27-31); Mean Corpuscular Volume 88 fL (80-97); Mean Platelet Volume 11.1 fL (7.4-10.4); Platelet Count 99 10^3/uL (150-450); Red Cell Distribution Width 14 % (10-15); White Blood Count 8.1 10^3/uL (3.5-10.8)
[2022-09-07 08:16] LABS: ABS Basophils 0.1 10^3/ul (0-0.2); ABS Eosinophils 0.2 10^3/ul (0-0.6); ABS Lymphocytes 1.1 10^3/ul (1.0-4.8); ABS Monocytes 0.7 10^3/ul (0-0.8); ABS Neutrophils 6.1 10^3/ul (1.5-7.7); Lymphocyte % 13.3 %
[2022-09-07] MEDS: Aspirin EC 81 mg TAB.EC (enteric coated) PO SCH (09:45)
[2022-09-07] MEDS ORDERED: Regadenoson 0.4 MG/5 ML SYRINGE ONE (12:43)
[2022-09-08] MEDS: Heparin DRIP 25,000 UNITS BAG 25,000 UNITS/500 ML BAG IV SCH (03:34)
[2022-09-08 06:01] LABS: Calcium 9.2 mg/dL (8.6-10.3); Creatinine, Serum 3.19 mg/dL (0.51-0.95); Magnesium 1.9 mg/dL (1.9-2.7); eGFR CKD-EPI 15.4 (>60)
[2022-09-08] MEDS: Aspirin EC 81 mg TAB.EC (enteric coated) PO SCH (10:49)
[2022-09-09] MEDS: Heparin DRIP 25,000 UNITS BAG 25,000 UNITS/500 ML BAG IV SCH (01:20)
[2022-09-09 06:52] LABS: Hematocrit 37 % (35-47); Hemoglobin 12.3 g/dL (12.0-16.0); Mean Corpuscular HGB Conc 34 g/dL (31-36); Mean Corpuscular Hemoglobin 30 pg (27-31); Mean Corpuscular Volume 89 fL (80-97); Mean Platelet Volume 11.7 fL (7.4-10.4); Platelet Count 103 10^3/uL (150-450); Red Blood Count 4.13 10^6 /uL (3.70-4.87); Red Cell Distribution Width 14 % (10-15); White Blood Count 6.9 10^3/uL (3.5-10.8)
[2022-09-09 07:15] LABS: Potassium 4.2 mmol/L (3.5-5.0)
[2022-09-09 07:16] LABS: Calcium 9.3 mg/dL (8.6-10.3); Creatinine, Serum 3.2 mg/dL (0.51-0.95); Magnesium 1.9 mg/dL (1.9-2.7); eGFR CKD-EPI 15.4 (>60)
[2022-09-09] MEDS: Aspirin EC 81 mg TAB.EC (enteric coated) PO SCH (08:25)
[2022-09-09 17:41] LABS: Fibrinogen, Clauss, P 618 mg/dL (200 - 500); INR (AATHR) 1.1 (0.9-1.1); Thrombin Time (Bovine), P 63.7 sec
[2022-09-10] MEDS: Aspirin EC 81 mg TAB.EC (enteric coated) PO SCH (08:41)
[2022-09-10 10:06] VITALS: BP 108/58
== END 2022-09-10 13:10 | disposition home or self-care (01) | DRG 189 ==
LOC: ED 12:28 → EDHOLD 12:28 → SUATTDRO 15:14 → MEDTELE 18:27 → SUATTDRO 09-03 14:09
PROVIDERS: ADMIT Internal Medicine; ATTEND Internal Medicine Hematology & Oncology

== ENCOUNTER 2022-09-21 21:18 | Observation (INO) ==
[2022-09-21 22:16] LABS: ABS Basophils 0.1 10^3/ul (0-0.2); ABS Eosinophils 0.1 10^3/ul (0-0.6); ABS Lymphocytes 0.6 10^3/ul (1.0-4.8); ABS Monocytes 0.8 10^3/ul (0-0.8); ABS Neutrophils 8.6 10^3/ul (1.5-7.7); Eosinophil % 1.2 %; Hematocrit 40 % (35-47); Hemoglobin 13.1 g/dL (12.0-16.0); Lymphocyte % 5.7 %; Mean Corpuscular HGB Conc 33 g/dL (31-36); Mean Corpuscular Hemoglobin 29 pg (27-31); Mean Corpuscular Volume 89 fL (80-97); Mean Platelet Volume 10.4 fL (7.4-10.4); Platelet Count 78 10^3/uL (150-450); Red Blood Count 4.49 10^6 /uL (3.70-4.87); Red Cell Distribution Width 15 % (10-15); White Blood Count 10.1 10^3/uL (3.5-10.8)
[2022-09-21 22:38] LABS: Albumin 3.9 g/dL (3.2-5.2); Albumin/Globulin Ratio 1.6 (1-3); Calcium 9.6 mg/dL (8.6-10.3); Creatinine, Serum 3.38 mg/dL (0.51-0.95); Globulin 2.4 g/dL (2-4); Magnesium 2.1 mg/dL (1.9-2.7); Potassium 4.6 mmol/L (3.5-5.0); Total Protein 6.3 g/dL (6.4-8.9); eGFR CKD-EPI 14.4 (>60)
[2022-09-21 23:30] LABS: High Sensitivity Troponin 1 Hr 93 pg/mL (<15)
[2022-09-21] MEDS ORDERED: Furosemide 20 mg/2 ml IV VIAL IV SLOW PU ONE (23:38)
[2022-09-21 23:50] LABS: Urine Appearance Cloudy; Urine Bilirubin Negative (Negative); Urine Blood 3+ (Negative); Urine Color Yellow; Urine Glucose 1+(50 mg/dL) (Negative); Urine Ketones Negative (Negative); Urine Nitrite Negative (Negative); Urine Protein 1+(30 mg/dL) (Negative); Urine Specific Gravity 1.013 (1.002-1.030); Urine Urobilinogen Negative (Negative)
[2022-09-21 23:54] LABS: Urine Bacteria Absent (Absent); Urine Red Blood Cell 3+(>10/hpf) (Absent); Urine Squamous Epithelial Cell Present (Absent); Urine White Blood Cell 3+(>20/hpf) (Absent)
[2022-09-22] MEDS ORDERED: Magnesium Hydroxide LIQ 30 ML UDC PO PRN (01:03)
[2022-09-22] MEDS ORDERED: Senna TAB 8.6 mg TAB PO PRN (01:03)
[2022-09-22] MEDS ORDERED: Dextrose 50% Syringe 50 ml 25 GM/50 ML SYRINGE IV PUSH PRN (01:13)
[2022-09-22] MEDS: Enoxaparin 30 MG/0.3 ML SYR SUBCUT SCH (07:46)
[2022-09-22] MEDS: Aspirin EC 81 mg TAB.EC (enteric coated) PO SCH (08:35)
[2022-09-22] MEDS: CMCS: Ranolazine 500 mg TAB ER (NF) PO SCH (08:35)
[2022-09-22 10:10] LABS: C Reactive Protein 7.18 mg/L (<8.01)
[2022-09-22] MEDS: Insulin GLARGINE 100 un/ml 10 ml VIAL SUBCUT SCH ×2 (10:32→21:23)
[2022-09-22] MEDS ORDERED: Bumetanide IV 0.25 MG/ML 4 ml VIAL (1 mg) IV SLOW PU SCH (11:00)
[2022-09-22] MEDS ORDERED: Bumetanide IV 0.25 MG/ML 4 ml VIAL (1 mg) IV SLOW PU ONE (12:00)
[2022-09-22] MEDS: Nystatin TOP POWDER 15 GM BTL TOPICAL SCH (21:24)
[2022-09-23] MEDS: Enoxaparin 30 MG/0.3 ML SYR SUBCUT SCH (05:28)
[2022-09-23 07:11] LABS: Creatinine, Serum 3.45 mg/dL (0.51-0.95); Potassium 3.9 mmol/L (3.5-5.0); eGFR CKD-EPI 14.1 (>60)
[2022-09-23] MEDS ORDERED: Pneumococcal Vac 23-Polyvalent IM ONE (09:00)
[2022-09-23] MEDS: Aspirin EC 81 mg TAB.EC (enteric coated) PO SCH (09:53)
[2022-09-23] MEDS: Insulin GLARGINE 100 un/ml 10 ml VIAL SUBCUT SCH ×2 (09:55→21:26)
[2022-09-23] MEDS: Nystatin TOP POWDER 15 GM BTL TOPICAL SCH ×2 (10:07→21:50)
[2022-09-23] MEDS: CMCS: Ranolazine 500 mg TAB ER (NF) PO SCH (10:50)
[2022-09-24] MEDS: Enoxaparin 30 MG/0.3 ML SYR SUBCUT SCH (06:25)
[2022-09-24] MEDS: Insulin GLARGINE 100 un/ml 10 ml VIAL SUBCUT SCH (08:04)
[2022-09-24] MEDS: Aspirin EC 81 mg TAB.EC (enteric coated) PO SCH (08:04)
[2022-09-24] MEDS: CMCS: Ranolazine 500 mg TAB ER (NF) PO SCH (08:06)
[2022-09-24] MEDS: Nystatin TOP POWDER 15 GM BTL TOPICAL SCH (08:11)
[2022-09-24 15:26] VITALS: BP 119/60
== END 2022-09-24 17:12 | disposition home or self-care (01) ==
LOC: EDHOLD 21:18 → ED 21:18 → SUATTDRO 09-22 01:03 → MEDTELE 09-22 17:07
PROVIDERS: ADMIT Hospitalist; ATTEND Student in an Organized Health Care Education/Training Program